=== PATIENT | female | born 1950 | race Caucasian/White ===

== ENCOUNTER → 2017-09-21 | Outpatient (CLI) | payer OTHER ==
[~2017-09-21] VITALS: Ht 170.2 cm; Wt 95.3 kg
[~2017-09-21] MED LIST: ALEVE220 MG PO; ALL DAY ALLERGY10 MG PO; AMITIZA8 MCG PO; APAP650 PO; ASPIR 8181 MG PO; DETROL LA4 MG PO; FLEXERIL PO; HYDROCODONE-AP1 EAC6 PO; HYDROXYCHLOROQ200 M1 PO; ISOSORBIDE MON120 MG PO; LEFLUNOMIDE 1010 MG PO; LIPITOR80 MG PO; NIFEDIPINE ER30 M1 PO; OMEGA-31000 M1 PO; PROTONIX40 M1 PO; TOPROL XL25 MG PO; UNICOMPLEX M TA1 TA1 PO; VITAMINC500 PO
--- NOTE | ~2017-09-21 | HPC ---
[facility] [place] [address] PAIN MANAGEMENT CONSULTATION Name: DANIELLE BROUSSARD Room #: REG IDALMIS GonsalesJoselyn#: [id number] Admission: 09/21/17 Attend Phys: Leighton Nieto DO Discharge: Date of : 50 Report #: [id number] THIS REPORT FOR: //name// CC: Darvin Llamas DATE OF SERVICE: 09/21/2017 REFERRING PHYSICIAN: Darvin Jeffries M.D. CHIEF COMPLAINT: Low back pain, right lower extremity pain and paresthesias. HISTORY OF PRESENT ILLNESS: As you know, the patient is a 66-year-old female who has had a short history of low back pain, right lower extremity pain with paresthesias. She indicates pain began August 2016, denies injury or trauma. She continues to participate in senior yoga and swimming exercise program, but despite these activities her pain remains fairly intense. She is placing pain today at around 3-4/10. She was seen by her orthopedic surgeon, Dr. Darvin Jeffries for suspected right hip pain. It was determined at that time the patient's symptoms were likely due to lumbar radiculopathy, and she was subsequently referred to our clinic. She indicates today pain is steady and constant, intermittent exacerbation symptoms occur at night. She states the pain is gnawing, sharp, tender, numbness and tingling. Places current pain score 3/10, daily average at 3-4/10, worst pain has been is 8/10. The patient states lying on her side and moving exacerbates symptoms. Pennsaid, hydrocodone, Blue-Emu oil tends to improve pain. She has been referred to our service to discuss interventional treatments to address lumbar radiculopathy. PAST MEDICAL HISTORY: 1. Coronary artery disease. 2. Esophageal reflux disease. 3. Bladder trouble. 4. Osteoarthritis. 5. Low back pain, lower extremity pain and paresthesias. PAST SURGICAL HISTORY: 1. Right knee arthroplasty. 2. Right shoulder surgery. 3. Left knee surgery. 4. Angioplasty with percutaneous stenting (CARDIAC). 5. Cataract surgery, bilateral. 6. Left nephrectomy. SOCIAL HISTORY: The patient denies tobacco, alcohol, IV or illicit drug use. 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 She is not receiving workmen's compensation or is she trying to obtain those disability benefits. She is unaccompanied today. She is not in litigation in regards to pain. REVIEW OF SYSTEMS: Positive for fatigue, weakness, frequent and recurrent headaches, wearing corrective eyewear, hearing loss or tinnitus, chronic sinus problems, rhinitis, heart trouble, chest pain with angina or palpitations, shortness of breath walking or lying flat, painful bowel movements or constipation, abdominal pain, frequent urination, nocturia, headaches, numbness and tingling sensations in the right lower extremity and excessive thirst and urination, heat and cold intolerance, slow to heal after cuts. All other review of systems negative per 12-point review of systems, and those listed in history of present illness. Pain impact score 26/70 indicating [id number] interference of daily activities secondary to pain. ALLERGIES: PENICILLIN AND SULFA. CURRENT MEDICATIONS: Naproxen sodium 220 mg 2 tabs p.o. at bedtime, multivitamin 1 tab per day, cetirizine 10 mg per day, omega-3 fish oil 1 tab per day, ascorbic acid 500 mg once a day, acetaminophen 650 mg 2 tabs 3 times a day, aspirin 81 mg per day, cyclobenzaprine 10 mg p.r.n., atorvastatin 80 mg per day, Detrol-LA 4 mg once a day, Amitiza 8 mcg per day, pantoprazole 40 mg per day, metoprolol 25 mg per day, Plaquenil 200 mg once a day, hydrocodone 5/325 one tab every 6 hours p.r.n. for pain, leflunomide 10 mg per day, isosorbide dinitrate 120 mg per day, nifedipine ER 30 mg per day. IMAGING: MRI lumbar spine shows multilevel degenerative changes, facet arthropathy, neural foraminal stenosis. No high grade central canal neural foraminal stenosis. There is a minimal grade 1 anterolisthesis of L4 on L5. PQRS: The patient has known osteoarthritis and rheumatoid arthritis. She has pain intensity of 3/10. She is not a fall risk, has not had a fall in the last 3 months. She is not on blood thinner. She is treated for hypertension. She has been on opioids greater than 6 weeks provided by another physician. Risk assessment tool is low for opioid addiction. Functional assessment shows 26/70, mild to moderate interference. PHYSICAL EXAMINATION: VITAL SIGNS: Blood pressure 127/67, pulse is 95, respiratory rate 16 and unlabored. The patient is 97% on room air. Height 5 feet 7 inches tall, weight 210 pounds, BMI calculated 32.9. GENERAL: Well-developed, well-nourished, well-hydrated exogenously obese 66-year-old female appearing her stated age, placing current pain score at [facility] [address] [place] [address] PAIN MANAGEMENT CONSULTATION Name: DANIELLE BROUSSARD Room #: REG Katelynn Dari.#: [id number] Admission: 09/21/17 Attend Phys: Leighton Nieto DO Discharge: Date of : 50 Report #: [id number] approximately 3-09/20. HEENT: Normocephalic, atraumatic. Pupils equal, round, reactive to light. Extraocular muscles are intact. Sclerae are nonicteric without injection. NEUROLOGIC: Cranial nerves 2-12 grossly intact. Speech is fluent. The patient deemed a good historian. LUNGS: Clear, no wheeze, rhonchi or rales. CARDIOVASCULAR: Regular. No appreciable gallop, no rub. ABDOMEN: Soft, mildly obese, normoactive bowel sounds. EXTREMITIES: Show no clubbing, no cyanosis, no edema. MUSCULOSKELETAL: Lower extremity strength equal and symmetrical 5/5. She is intact to light touch from L1 through S2 dermatomes. Seated straight leg raising negative. Supine straight leg raising mildly positive right. Marisol test negative. Modified Gaenslen's positive for axial low back pain. Ankle clonus negative. Babinski is negative. Deep tendon reflexes are symmetrical at patella and Achilles, diminished bilaterally. Lumbar provocation testing including extension, rotation, lateral flexion all slightly intensify right low back pain. ASSESSMENT: 1. Lumbar radiculopathy. 2. Spondylolisthesis of L4 on L5. 3. Chronic intractable pain. PLAN: 1. The patient has been referred to our service by her orthopedic surgeon to undergo an epidural injection under fluoroscopic guidance to address suspected lumbar radiculopathy. Physical exam today shows a mild lumbar radicular pattern involving the right lower extremity and appears to be along the right L5 nerve root. We have discussed with the patient the other options of treatment including medication management with neuropathic pain medications. We discussed physical therapy, stretching exercise, core strengthening. We discussed the requested epidural injection and surgical options. After reviewing the risks and benefits of all proposed treatment options, the patient chose to move forward with an epidural injection. The patient was advised risks and benefits of a lumbar epidural injection. These risks include but are not necessarily limited to bleeding, bruising, infection, worsening pain, no relief of pain, also risk of temporary or permanent muscle weakness, temporary or permanent nerve damage, possible paralysis and . The patient states understood and wished to proceed. 2. No medication changes were made at today's visit. The patient will continue current medical therapy as previously prescribed. 3. We will see the patient back in followup visit in approximately 3 weeks. At that time, we will review the efficacy of today's lumbar epidural injection and discuss if any next in the series of epidural injections would be necessary. 4. We wish to thank Dr. Darvin Jeffries for the referral of the patient to our clinic. We will keep you apprised of her response to treatment as we address [address] [address] PAIN MANAGEMENT CONSULTATION Name: DANIELLE BROUSSARD Room #: REG CLKatelynn Finn#: [id number] Admission: 09/21/17 Attend Phys: Leighton Nieto DO Discharge: Date of : 50 Report #: [id number] suspected lumbar radicular symptoms involving the right lower extremity upon the L5 nerve root. Again, we wish to thank you for the opportunity to see this patient in consultation. <ELECTRONICALLY SIGNED> By: Leighton Nieto DO 09/28/17 1207 [id number] Leighton Nieto DO /nt
--- NOTE | ~2017-09-21 | P ---
[facility] [place] [address] PROCEDURE REPORT Name: DANIELLE BROUSSARD [facility] #: [facility] [id number] Admission: 09/21/17 Attend Phys: Leighton Nieto DO Discharge: Date of : 50 Report #: [id number] THIS REPORT FOR: //name// CC: Darvin Llaams DATE OF SERVICE: 09/21/2017 PROCEDURE NOTE DESCRIPTION OF PROCEDURE: L5-S1 right paramedian epidural steroid injection under fluoroscopic guidance. This is the first procedure of the first series that the patient is undergoing. After obtaining written consent, the patient was taken back to the fluoroscopy suite, placed in a prone position with pillow under the abdomen to decrease lumbar lordosis. The skin overlying the lumbosacral area was then prepped and draped in aseptic fashion. The L5-S1 vertebral interspace was then identified by AP fluoroscopy. The skin and subcutaneous tissue overlying the target site of injection was anesthetized with 3 mL 1% lidocaine. A(n) 20-gauge 3-1/2 inch Tuohy needle was then advanced under fluoroscopic guidance towards the epidural space using a right paramedian approach. The epidural space was identified using loss of resistance to air technique. After negative aspiration for heme or cerebrospinal fluid, a total of 1 mL of Omnipaque was injected. A lumbar epidurogram was confirmed using both AP and lateral fluoroscopy. After negative aspiration for heme or cerebrospinal fluid, 5 mL of a solution containing 2 mL 40 mg/mL, 80 mg total triamcinolone, 3 mL lidocaine 1% was injected in increments. Contrast spread was noted posterior epidural space. The needle was then retracted approximately half way and needle tract flushed with 1 mL of 1% lidocaine. Needle was then removed. There were no apparent sensory or motor deficits in the lower extremity following the procedure. A sterile bandage was placed over the injection site. The heart rate, pulse, oximetry and blood pressure were continuously monitored after the procedure. There were no apparent complications. The patient tolerated the procedure well and was carefully escorted to the recovery room in stable condition. There were no apparent complications. After meeting discharge criteria, the patient was then discharged home. <ELECTRONICALLY SIGNED> By: Leighton Nieto DO 09/28/17 1207 [id number] Leighton Nieto DO /nt
[2017-09-21 08:07] VITALS: BP 127/67
== END | disposition home or self-care (01) ==
LOC: PAIN 06:46
DX: M54.16 Radiculopathy, lumbar region (principal); G89.29 Other chronic pain; M43.16 Spondylolisthesis, lumbar region; I25.10 Atherosclerotic heart disease of native coronary artery without angina pectoris; K21.9 Gastro-esophageal reflux disease without esophagitis; M19.90 Unspecified osteoarthritis, unspecified site; Z98.890 Other specified postprocedural states; Z98.41 Cataract extraction status, right eye; Z98.42 Cataract extraction status, left eye; Z90.5 Acquired absence of kidney; Z98.61 Coronary angioplasty status; Z88.0 Allergy status to penicillin; Z88.2 Allergy status to sulfonamides; Z79.899 Other long term (current) drug therapy; Z79.891 Long term (current) use of opiate analgesic; Z79.82 Long term (current) use of aspirin; Z87.19 Personal history of other diseases of the digestive system

== ENCOUNTER → 2017-10-19 | Outpatient (CLI) | payer OTHER ==
[~2017-10-19] VITALS: Ht 170.2 cm; Wt 94.9 kg
--- NOTE | ~2017-10-19 | HPC ---
[facility] [address] [place] [address] PAIN MANAGEMENT CONSULTATION Name: DANIELLE BROUSSARD Room #: REG IDALMIS SamanoJoselynDanial.#: [id number] Admission: 10/19/17 Attend Phys: Leighton Nieto DO Discharge: Date of : 50 Report #: [id number] THIS REPORT FOR: //name// CC: Darvin Llamas DATE OF SERVICE: 10/19/2017 REFERRING PHYSICIAN: Darvin Jeffries MD CHIEF COMPLAINT: Low back pain, right lower extremity pain with paresthesias. HISTORY OF PRESENT ILLNESS: As you know, the patient is a very pleasant 67-year-old female who returns today in followup visit, indicating improvement in pain in regards to her lumbar radicular symptoms. She is now placing pain score 3/10. She indicates pain is constant, sharp, tender, numbness and gnawing. Exacerbated with lying down, improves with medications and previous epidural injections. The patient received a reported 60% improvement in overall pain with the epidural injection provided at her last visit. She remains with some numbness and tingling and pain for which she wants to undergo the next in the series of epidural injections. She returns to undergo this procedure today. She does indicate that she is also experiencing right upper extremity numbness and tingling and is being evaluated further by vascular surgeon in regards to carotid problems on the left. There was some concern the patient may have suffered a stroke, though she is only experiencing numbness and tingling in the right arm and right leg. There are no symptoms involving any of the thoracic area, which would be inconsistent with stroke. It appears the patient is suffering from cervical radiculopathy and lumbar radiculopathy, the most likely sources. She returns today in followup visit, requesting epidural injection to build on success of previous intervention. She has denied any new injury or new trauma that may have led to symptom recurrence. ALLERGIES: PENICILLIN, SULFA. CURRENT MEDICATIONS: See extensive list in chart. SOCIAL HISTORY: The patient denies tobacco, alcohol, IV or illicit drug use. 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 She is not receiving workmen's compensation nor is she trying to obtain disability benefits. She is unaccompanied at today's visit. IMAGING: No new imaging available. PQRS: The patient has osteoarthritis and erosive arthritis, possibly even rheumatoid arthritis. She is being treated by Rheumatology. She has a pain [facility] [address] [place] [address] PAIN MANAGEMENT CONSULTATION Name: DANIELLE BROUSSARD Room #: REG CLI Huma#: [id number] Admission: 10/19/17 Attend Phys: Leighton Nieto DO Discharge: Date of : 50 Report #: [id number] intensity score today 08/20. She is not a fall risk, has not had a fall in last 3 months. She is not on blood thinners. She is treated for hypertension. She has been on opioids for greater than 6 weeks being provided by another physician. Risk assessment is low for opioid abuse. Functional assessment tool 26/70, mild to moderate. PHYSICAL EXAMINATION: VITAL SIGNS: Blood pressure 127/67, pulse 95, respiratory rate 16 and unlabored. The patient is 97% on room air. Height 5 feet 7 inches tall, weight 210 pounds, BMI calculated 32.9. GENERAL: Well-developed, well-nourished, well-hydrated exogenously obese 67-year-old female appearing her stated age. She is placing current pain score 3/10. HEENT: Normocephalic, atraumatic. Pupils equal, round, reactive to light. EXTREMITIES: Show no clubbing, no cyanosis, no edema. MUSCULOSKELETAL: Seated straight leg raising negative. Supine straight leg raising mildly positive right. Marisol's test negative. Modified Gaenslen's positive for axial low back pain. Ankle clonus negative. Babinski is negative. No focal neurologic deficits. ASSESSMENT: 1. Lumbar radiculopathy. 2. Spondylolisthesis of L4 on L5. 3. Peripheral neuropathy. 4. Chronic intractable pain. PLAN: 1. The patient returns today in followup visit, having noted about 60% improvement in overall pain with the initial epidural injection. Unfortunately, her symptoms have begun to return. She returns today per the request of her referring physician to undergo second in series of epidural injections. We also discussed today the possibility of initiating neuropathic pain medication as she is experiencing radicular symptoms in the right upper extremity and the right lower extremity, this could provide benefit for both. At this time, the patient does not wish to initiate any new medications as she is concerned, she is "taking too many." This could be discussed again with her PCP or her referring physician as possible treatment option. She has requested from us today an epidural injection. The patient was advised risks and benefits of a lumbar epidural injection. These risks include but are not necessarily limited to bleeding, bruising, infection, worsening pain, no relief of pain, also risk of temporary or permanent muscle weakness, temporary or permanent nerve damage, possible paralysis and . The patient states understood and wished to proceed. 2. No medication changes were made at today's visit. The patient will continue current medical therapy as previously prescribed. [address] [address] PAIN MANAGEMENT CONSULTATION Name: DANIELLE BROUSSARD Room #: REG [facility]#: [id number] Admission: 10/19/17 Attend Phys: Leighton Nieto DO Discharge: Date of : 50 Report #: [id number] 3. We will see the patient back in followup visit on an as-needed basis for the third in the series of epidural injections if necessary. PROCEDURE NOTE DESCRIPTION OF PROCEDURE: L5-S1 right paramedian epidural steroid injection under fluoroscopic guidance. This is the second procedure of the first series that the patient is undergoing. After obtaining written consent, the patient was taken back to the fluoroscopy suite, placed in a prone position with pillow under the abdomen to decrease lumbar lordosis. The skin overlying the lumbosacral area was then prepped and draped in aseptic fashion. The L5-S1 vertebral interspace was then identified by AP fluoroscopy. The skin and subcutaneous tissue overlying the target site of injection was anesthetized with 3 mL 1% lidocaine. A 20-gauge 3.5 inch Tuohy needle was then advanced under fluoroscopic guidance towards the epidural space using a right paramedian approach. The epidural space was identified using loss of resistance to air technique. After negative aspiration for heme or cerebrospinal fluid, a total of 1 mL of Omnipaque was injected. A lumbar epidurogram was confirmed using both AP and lateral fluoroscopy. After negative aspiration for heme or cerebrospinal fluid, 5 mL of a solution containing 2 mL 40 mg per mL, 80 mg total triamcinolone, 3 mL of lidocaine 1% was injected in increments. Contrast spread was noted posterior epidural space. The needle was then retracted approximately half way and needle tract flushed with 1 mL of 1% lidocaine. Needle was then removed. There were no apparent sensory or motor deficits in the lower extremity following the procedure. A sterile bandage was placed over the injection site. The heart rate, pulse, oximetry and blood pressure were continuously monitored after the procedure. There were no apparent complications. The patient tolerated the procedure well and was carefully escorted to the recovery room in stable condition. There were no apparent complications. After meeting discharge criteria, the patient was then discharged home. <ELECTRONICALLY SIGNED> By: Leighton Nieto DO 10/25/17 0811 [id number] Leighton Nieto DO /nt
[2017-10-19 08:07] VITALS: BP 135/74
== END | disposition home or self-care (01) ==
LOC: PAIN 07:30
DX: M54.16 Radiculopathy, lumbar region (principal); M43.16 Spondylolisthesis, lumbar region; G89.29 Other chronic pain; G62.9 Polyneuropathy, unspecified; I10 Essential (primary) hypertension; M19.90 Unspecified osteoarthritis, unspecified site; Z79.891 Long term (current) use of opiate analgesic; Z88.0 Allergy status to penicillin; Z88.2 Allergy status to sulfonamides; Z87.891 Personal history of nicotine dependence; Z79.82 Long term (current) use of aspirin; Z79.899 Other long term (current) drug therapy

== ENCOUNTER → 2018-06-20 | Outpatient (CLI) | payer OTHER ==
[~2018-06-20] VITALS: Ht 170.2 cm; Wt 96.1 kg
[~2018-06-20] MED LIST changes: +CYMBALTA30 MG PO; +LYRICA150 MG PO; +ROBAXIN 750 MG750 M1 PO
--- NOTE | ~2018-06-20 | HPC ---
[facility] [place] [address] PAIN MANAGEMENT CONSULTATION Name: BROUSSARDDANIELLE Mic Room #: REG IDALMIS Huma#: [id number] Admission: 06/20/18 Attend Phys: Leighton Nieto DO Discharge: Date of : 50 Report #: [id number] THIS REPORT FOR: //name// CC: Lucía Llamas DATE OF SERVICE: 06/20/2018 CHIEF COMPLAINT: Right thigh pain, posterolateral. HISTORY OF PRESENT ILLNESS: As you know, the patient is a 67-year-old female who underwent surgical decompression of the neck from C4 through T2 with laminectomy and fusion. She continues to experience a burning sensation in the right lateral thigh, believed to be due to residual radiculopathy. The patient has sought evaluation through her neurosurgery team. She continued to experience pain. She was advised no surgical option at this point though workup continues and she does have plans to undergo imaging of the cervical spine later this week. She has been referred back to our clinic to discuss options for treatment for the right lateral thigh. Pain appears to be related more to the iliotibial band than a specific dermatomal distribution. 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 She indicates today pain level around 6/10, describes the pain as burning and tight in its presentation. She is referred to our service to discuss options for treatment for this lateral thigh pain. ALLERGIES: PENICILLIN, SULFA. CURRENT MEDICATIONS: Duloxetine 30 mg once a day, Lyrica 150 mg 3 times a day, methocarbamol 750 mg twice a day, multivitamin 1 tab per day, cetirizine 10 mg per day, omega-3 fish oil 1 tab per day, ascorbic acid 500 mg 3 times a day, acetaminophen 650 mg 3 times a day, aspirin 81 mg per day, atorvastatin 80 mg per day, Amitiza 8 mcg per day, pantoprazole 40 mg per day, metoprolol XL 25 mg per day, hydroxychloroquine 200 mg once a day, leflunomide 10 mg once a day, isosorbide dinitrate 120 mg once a day, nifedipine ER 30 mg once a day. SOCIAL HISTORY: The patient denies tobacco, alcohol, IV or illicit drug use. She is unaccompanied today. IMAGING: There is no new imaging available. PQRS: The patient has known osteoarthritic changes of the cervical region. Has changes in the lumbar spine and bilateral hips. No rheumatoid arthritis based on her report. She indicates pain intensity 6/10. She is a fall risk, has had [address] [address] PAIN MANAGEMENT CONSULTATION Name: DANIELLE BROUSSARD Room #: REG CLI Huma#: [id number] Admission: 06/20/18 Attend Phys: Leighton Nieto DO Discharge: Date of : 50 Report #: [id number] a fall in the last 3 months and has been cautioned to utilize ambulatory devices for stabilization. She is not on any blood thinners. She is treated for hypertension. She is not on chronic opioids. She has a moderate to high risk for opioid addiction potentials. She has placed pain impact at 26/70, mild to moderate. PHYSICAL EXAMINATION: VITAL SIGNS: Blood pressure 108/57, pulse is 89, respiratory rate 16 and unlabored, the patient is 99% on room air. Height 5 feet 7 inches tall, weight 211.8 pounds, BMI calculated 33.2. GENERAL: Well-developed, well-nourished, well-hydrated 67-year-old female appearing stated age, placing current pain score at 6/10. HEENT: Normocephalic, atraumatic. Pupils equal, round, reactive to light. Extraocular muscles are intact. Sclerae nonicteric without injection. MUSCULOSKELETAL: The patient is in a soft collar, status post surgery with well-healed surgical scars in the cervical region. LUNGS: Clear, no wheeze, rhonchi or rales. CARDIOVASCULAR: Regular. No appreciable gallop, no rub. ABDOMEN: Soft, obese, normal active bowel sounds. EXTREMITIES: Show no clubbing, no cyanosis, no edema. MUSCULOSKELETAL: Upper extremity strength appears symmetrical 5/5, intact to light touch from C5-T1 dermatomes. Cervical provocation testing is met with increasing pain. There is a significant restriction of motion secondary to surgery. Lower extremity strength appears equal and symmetrical, no giveaway strength noted. Muscle tone is asymmetrical when comparing right lower extremity to left. There appears to be some atrophy of the quadriceps on the right when compared to left. There is a surgical scar directly overlying the patient's distribution of pain on the right lateral aspect of the thigh, status post squamous cell excision. Ankle clonus negative. Babinski is negative. There is palpatory tenderness over the iliotibial band. ASSESSMENT: 1. Right lower extremity pain. 2. Pain related to the right iliotibial band. 3. Peripheral neuropathy. 4. Chronic intractable pain. PLAN: 1. The patient returns today in followup visit indicating continued right leg pain. Apparently pain was present prior to her surgical intervention in the cervical region. This alleviated some of the symptoms and she has been able to add muscle back in the area, possibly due to myelopathy, though she continues to experience pain. We will be treating this as a neuropathic pain condition. There may be some component of myofascial symptoms and iliotibial band tension that needs to be evaluated through physical therapy and we have advised the patient to do so. The following changes were made in the patient's medication [facility] [address] [place] [address] PAIN MANAGEMENT CONSULTATION Name: DANIELLE BROUSSARD Room #: REG IDALMIS Finn#: [id number] Admission: 06/20/18 Attend Phys: Leighton Nieto DO Discharge: Date of : 50 Report #: [id number] management in hopes of improving baseline pain control. 2. Recommend increasing her Cymbalta to 60 mg p.o. at bedtime for the next 2 weeks with possibility escalating to 30 mg morning, 60 mg at night for 2 following weeks. If no improvement in symptoms, no side effects, then escalating to 60 mg b.i.d. This will be the top dose to provide improved analgesic benefit. The patient was provided prescription of Cymbalta 30 mg dose, #120 to titrate to the recommended level. 3. We would recommend the patient remain on Lyrica. She has noted good benefit with this medication. She is taking 150 mg 3 times a day without side effects and noted benefit. I would recommend she continue on this medication until which time we were able to control her symptoms more effectively: 4. The patient will follow up with Neurosurgery in regards to the findings of the cervical imaging and to discuss treatment options for her right lower extremity pain and paresthesias. 5. We will see the patient back in followup visit on an as needed basis. By: [id number] Leighton Nieto DO /nt
[2018-06-20 08:42] VITALS: BP 108/57
--- NOTE | 2018-06-20 08:56 | NUR ---
Pain Clinic Assessment: 1. History of Osteoarthritis: Not Applicable History of Rheumatoid Arthritis: Not Applicable 2. Height: 5 ft. 7 in. 170.2 cm. Weight: 211.8 lb. oz. 96.072 kg. Patient's BMI: 33.2 3. Vital Signs: BP: 108/57 Pulse: 89 Resp: 16 Temp: 02 Sat: 99 ECG Mon: 4. Pain Intensity: 6 5. Fall Risk: Dizziness: N Needs help standing or walking: Y Fallen in the last 3 months: Y Fall risk comments: 6. Patient on Blood Thinner: None 7. History of Hypertension: Y 8. Opioid Therapy greater than 6 weeks: N Opiate Contract Signed: 9. Risk Assessment Tool Provided: MODERATE RISK 12/17 10. Functional Assessment Tool: 11. Recreational Drug Use: Never Drug Type: Tobacco Use: Former Smoker Tobacco Type: Amount or Packs/day: How Many Years: Alcohol Use: Yes Frequency: Monthly Quant: 1-2 A MONTH
== END ==
LOC: PAIN 07:21
DX: M79.604 Pain in right leg (principal); G89.4 Chronic pain syndrome; G62.9 Polyneuropathy, unspecified; Z79.899 Other long term (current) drug therapy

== ENCOUNTER → 2018-08-16 | Outpatient (CLI) | payer OTHER ==
[~2018-08-16] VITALS: Ht 170.2 cm; Wt 96.6 kg
[~2018-08-16] MED LIST changes: +MEDROL DOSPAK21 TA1 PO; +NITROGLYCERIN0.4 MG SUBLING
[2018-08-16 10:07] VITALS: BP 129/54
--- NOTE | 2018-08-16 10:15 | NUR ---
Pain Clinic Assessment: 1. History of Osteoarthritis: Not Applicable History of Rheumatoid Arthritis: Not Applicable 2. Height: 5 ft. 7 in. 170.2 cm. Weight: 213.0 lb. oz. 96.616 kg. Patient's BMI: 33.4 3. Vital Signs: BP: 129/54 Pulse: 76 Resp: 18 Temp: 02 Sat: 97 ECG Mon: 4. Pain Intensity: 6 5. Fall Risk: Dizziness: N Needs help standing or walking: Y Fallen in the last 3 months: Y Fall risk comments: 6. Patient on Blood Thinner: None 7. History of Hypertension: Y 8. Opioid Therapy greater than 6 weeks: N Opiate Contract Signed: 9. Risk Assessment Tool Provided: MODERATE RISK 7 10. Functional Assessment Tool: 11. Recreational Drug Use: Never Drug Type: Tobacco Use: Former Smoker Tobacco Type: Amount or Packs/day: How Many Years: Alcohol Use: Yes Frequency: Special Occasions Quant: 1
--- NOTE | 2018-08-22 07:52 | HPC ---
[facility] [place] [address] PAIN MANAGEMENT CONSULTATION Name: DANIELLE BROUSSARD Room #: REG IDALMIS Joselyn.#: [id number] Admission: 08/16/18 ������������������ Attend Phys: Leighton Nieto DO Discharge: ������������������ Date of : 50 Report #: [id number] THIS REPORT FOR: //name// CC: Darvin Llamas MD DATE OF SERVICE: 08/16/2018 CHIEF COMPLAINT: Low back pain, right lower extremity pain and paresthesias. HISTORY OF PRESENT ILLNESS: As you know, the patient is a 67-year-old female who returns today in followup visit with ongoing concerns of low back pain and right lower extremity pain. The patient was seen in our clinic per the request of her neurosurgeon, Lucía Castro, 06/20/2018, where he evaluated the patient for right lower extremity pain related to possible excessively tight iliotibial band that was unalleviatable with physical therapy. She returns today in followup visit stating her pain now radiates down the leg all the way to the foot. This appears to be more radicular in origin. She indicates pain level today of around 6/10. She states pain is exacerbated with walking, standing and doing any activity. She denies new injury, new trauma or any changes since our last visit from a medication standpoint. ALLERGIES: PENICILLIN, SULFA. CURRENT MEDICATIONS: Duloxetine, Lyrica, methocarbamol, multivitamin, cetirizine, omega 3 fish oil, ascorbic acid, acetaminophen, aspirin, atorvastatin, Amitiza, pantoprazole, metoprolol XL, hydroxychloroquine, leflunomide, isosorbide dinitrate, nifedipine. SOCIAL HISTORY: The patient denies tobacco, alcohol, IV or illicit drug use. She is unaccompanied today. IMAGING: No new imaging available. PQRS: The patient has known osteoarthritic changes of the cervical spine and the lumbar spine as well as bilateral hips. No rheumatoid arthritis. Pain is rated at 6/10. She is a fall risk, has had a fall in the last 3 months. She is using an ambulatory device. She is not on blood thinners, but has history of hypertension. She is not on any opioids and is at a moderate to high risk for opioid addiction. She is placing pain impact score 26/70 indicating moderate interference of daily activities secondary to pain. PHYSICAL EXAMINATION: [address] [address] PAIN MANAGEMENT CONSULTATION Name: DANIELLE BROUSSARD Room #: REG CLKatelynn GonsalesJoselyn#: [id number] Admission: 08/16/18 ������������������ Attend Phys: Leighton Nieto DO Discharge: ������������������ Date of : 50 Report #: [id number] VITAL SIGNS: Blood pressure 129/54, pulse is 76, respiratory rate 18 and unlabored. The patient is 97% on room air. Height 5 feet 7 inches tall, weight 213 pounds, BMI calculated 33.4. GENERAL: Well-developed, well-nourished, well-hydrated exogenously obese 67-year-old female appearing stated age, placing current pain score at 6/10. HEENT: Normocephalic, atraumatic. Pupils equal, round, reactive to light. EXTREMITIES: Show no clubbing, no cyanosis, no edema. MUSCULOSKELETAL: Lower extremity strength appears symmetrical 5/5. No giveaway strength noted. Muscle bulk and tone is asymmetrical when comparing the right lower extremity to the left. Appears to be some atrophy of the quadriceps on the right when compared to left. Surgical scar directly over the patient's pain distribution on the right. Babinski is negative. ASSESSMENT: 1. Lumbar radiculopathy. 2. Right lower extremity pain. 3. Peripheral neuropathy. 4. Chronic intractable pain. PLAN: 1. The patient returns today in followup visit per the request of her neurosurgeon to undergo a lumbar epidural injection under fluoroscopic guidance to address suspected lumbar radiculopathy. The patient and I had a long discussion about this today. She is amenable to undergo the procedure. She has been advised of the risks and the benefits of a lumbar epidural injection. These risks include but are not necessarily limited to bleeding, bruising, infection, worsening pain, no relief of pain, also risk of temporary or permanent muscle weakness, temporary or permanent nerve damage, possible paralysis and . The patient states understood and wished to proceed. 2. No medication changes made at today's visit. The patient will continue current medical therapy as previously prescribed. 3. We will see the patient back in followup visit on an as needed basis for possible next in the series of epidural injections. PROCEDURE NOTE: DESCRIPTION OF PROCEDURE: L5-S1 interlaminar epidural steroid injection under fluoroscopic guidance. This is the first procedure of the second series that the patient is undergoing. After obtaining written consent, the patient was taken back to the fluoroscopy suite, placed in a prone position with pillow under the abdomen to decrease lumbar lordosis. The skin overlying the lumbosacral area was then prepped and draped in aseptic fashion. The L5-S1 vertebral interspace was then identified by AP fluoroscopy. The skin and subcutaneous tissue overlying the target site [address] [address] PAIN MANAGEMENT CONSULTATION Name: DANIELLE BROUSSARD Room #: REG [facility]#: [id number] Admission: 08/16/18 ������������������ Attend Phys: Leighton Nieto DO Discharge: ������������������ Date of : 50 Report #: [id number] of injection was anesthetized with 3 mL 1% lidocaine. A 20 gauge, 4-1/2 inch Tuohy needle was then advanced under fluoroscopic guidance towards the epidural space using a paramedian approach. The epidural space was identified using loss of resistance to air technique. After negative aspiration for heme or cerebrospinal fluid, a total of 1 mL of Omnipaque was injected. A lumbar epidurogram was confirmed using both AP and lateral fluoroscopy. After negative aspiration for heme or cerebrospinal fluid, 5 mL of a solution containing 2 mL 40 mg per mL, 80 mg total triamcinolone and 3 mL lidocaine 1% was injected in increments. Contrast spread was noted posterior epidural space. The needle was then retracted approximately half way and needle tract flushed with 1 mL of lidocaine. Needle was then removed. There were no apparent sensory or motor deficits in the lower extremity following the procedure. A sterile bandage was placed over the injection site. The heart rate, pulse, oximetry and blood pressure were continuously monitored after the procedure. There were no apparent complications. The patient tolerated the procedure well and was carefully escorted to the recovery room in stable condition. There were no apparent complications. After meeting discharge criteria, the patient was then discharged home. ��������������������������������������������� <ELECTRONICALLY SIGNED> ���������������������������������������� By: Leighton Nieto DO ��������������������������������������������� 08/22/18 [id number] Leighton Nieto DO /chun
== END | disposition home or self-care (01) ==
LOC: PAIN 06:59
DX: M54.16 Radiculopathy, lumbar region (principal); G89.29 Other chronic pain; G62.9 Polyneuropathy, unspecified; M79.604 Pain in right leg; I10 Essential (primary) hypertension; M19.90 Unspecified osteoarthritis, unspecified site; Z88.0 Allergy status to penicillin; Z88.2 Allergy status to sulfonamides; Z79.899 Other long term (current) drug therapy; Z87.891 Personal history of nicotine dependence; Z91.041 Radiographic dye allergy status; Z79.82 Long term (current) use of aspirin

== ENCOUNTER → 2018-11-15 | Outpatient (CLI) | payer OTHER ==
[~2018-11-15] VITALS: Ht 170.2 cm; Wt 99.9 kg
--- NOTE | ~2018-11-15 | HPC ---
[facility] [place] [address] PAIN MANAGEMENT CONSULTATION Name: DANIELLE BROUSSARD Room #: REG [facility]#: [id number] Admission: 11/15/18 ������������������ Attend Phys: Leighton Nieto DO Discharge: ������������������ Date of : 50 Report #: [id number] THIS REPORT FOR: //name// CC: DARVIN Llamas MD DATE OF SERVICE: 11/15/2018 REFERRING PHYSICIAN: Dr. Darvin Jeffries. CHIEF COMPLAINT: Low back pain, right lower extremity pain and paresthesias. HISTORY OF PRESENT ILLNESS: As you know, the patient is a 68-year-old female who returns today in followup visit with recurrent low back pain, right lower extremity pain with paresthesias. She is now experiencing some left lower extremity pain as well. She is now placing her pain score at 8/10. She states her pain is burning and aching in sensation and exacerbated with standing and walking for long periods of time. It improves with lying down, repositioning and previous epidural injection. The patient reports previous epidural injection gave 100% improvement in overall pain, lasting for nearly 3 months. She returns today to undergo next in the series of epidural injections. She denies new injury or trauma that may have led to condition reoccurrence. ALLERGIES: PENICILLIN AND SULFA. CURRENT MEDICATIONS: Lyrica, duloxetine, nitroglycerin, cetirizine, Henry-3 fish oil, ascorbic acid, acetaminophen, aspirin, atorvastatin, Amitiza, pantoprazole, metoprolol, hydroxychloroquine, hydrocodone, leflunomide, isosorbide dinitrate and nifedipine. SOCIAL HISTORY: The patient denies tobacco, alcohol, IV or illicit drug use. She is unaccompanied today. IMAGING: No new imaging available. PQRS: The patient has known arthritic changes of the cervical spine, lumbar spine and bilateral hips. No rheumatoid arthritis. She is a fall risk, but has not had a fall in the last 3 months. She is not on blood thinners. She is treated for hypertension. She is not on chronic opioids, but has a [id number] opioid risk potential. She is placing a pain impact at 26/70, moderate interference of daily activities secondary to pain. PHYSICAL EXAMINATION: [address] [address] PAIN MANAGEMENT CONSULTATION Name: BROUSSARDDANIELLE E Room #: REG [facility].#: [id number] Admission: 11/15/18 ������������������ Attend Phys: Leighton Nieto DO Discharge: ������������������ Date of : 50 Report #: [id number] VITAL SIGNS: Blood pressure 118/69, pulse 83 and respiratory rate 16 and unlabored. The patient is 96% on room air. Height 5 feet 7 inches tall, weight 220.2 pounds and BMI calculated 34.5. GENERAL: Well-developed, well-nourished, well-hydrated exogenously obese 68-year-old female. She appears stated age, placing current pain score at 8/10. HEENT: Normocephalic, atraumatic. Pupils equal, round and reactive to light. Extraocular muscles are intact. Speech fluent. The patient deemed a good historian. EXTREMITIES: Show no clubbing, no cyanosis and no edema. MUSCULOSKELETAL: Lower extremity strength equal and symmetrical, 5/5. Muscle bulk and tone equal and symmetrical when comparing to lower extremities. Surgical scar directly over the patient's pain distribution on the right. Babinski is negative. Ankle clonus negative. Seated straight leg raising negative. Supine straight leg raising positive. ASSESSMENT: 1. Symptomatic lumbar radiculopathy. 2. Displacement of lumbar intervertebral disk with radiculopathy. 3. Lumbosacral spondylosis with radiculopathy. 4. Neural foraminal stenosis of the lumbar spine. 5. Chronic intractable pain. PLAN: 1. The patient returns today in followup visit, requesting to undergo next in the series of epidural injections under fluoroscopic guidance. She has done very well with previous epidural injection, reporting 100% improvement in overall pain, with her last injection lasting for nearly 3 months. She returns requesting this injection today. I advised the patient of the risks and benefits. She states she understood and wished to proceed. 2. No medication changes made at today's visit. The patient will continue current medical therapy as previously prescribed. 3. We will see the patient back in followup visit on an as-needed basis for possible next in the series of lumbar epidural injections. PROCEDURE: L5-S1 interlaminar epidural steroid injection under fluoroscopic guidance. This is the second procedure of the second series that the patient is undergoing. After obtaining written consent, the patient was taken back to the fluoroscopy suite, placed in a prone position with pillow under the abdomen to decrease lumbar lordosis. The skin overlying the lumbosacral area was then prepped and draped in aseptic fashion. The L5-S1 vertebral interspace was then identified by AP fluoroscopy. The skin and subcutaneous tissue overlying the target site of injection was anesthetized with 3 mL 1% lidocaine. [address] [address] PAIN MANAGEMENT CONSULTATION Name: DANIELLE BROUSSARD Room #: REG IDALMIS Finn#: [id number] Admission: 11/15/18 ������������������ Attend Phys: Leighton Nieto DO Discharge: ������������������ Date of : 50 Report #: [id number] A 20-guage 4.5-inch Tuohy needle was then advanced under fluoroscopic guidance towards the epidural space using a right paramedian approach. The epidural space was identified using loss of resistance to air technique. After negative aspiration for heme or cerebrospinal fluid, a total of 1 mL of Omnipaque was injected. A lumbar epidurogram was confirmed using both AP and lateral fluoroscopy. After negative aspiration for heme or cerebrospinal fluid, 5 mL of a solution containing 2 mL 40 mg per mL 80 mg total triamcinolone and 3 mL of lidocaine 1% was injected in increments. Contrast spread was noted posterior epidural space. The needle was then retracted approximately half way and needle tract flushed with 1 mL of lidocaine. Needle was then removed. There were no apparent sensory or motor deficits in the lower extremity following the procedure. A sterile bandage was placed over the injection site. The heart rate, pulse, oximetry and blood pressure were continuously monitored after the procedure. There were no apparent complications. The patient tolerated the procedure well and was carefully escorted to the recovery room in stable condition. There were no apparent complications. After meeting discharge criteria, the patient was then discharged home. ��������������������������������������������� ���������������������������������������� By: ��������������������������������������������� [id number] Leighton Nieto DO /nt
[2018-11-15 11:24] VITALS: BP 118/69
--- NOTE | 2018-11-15 11:37 | NUR ---
Pain Clinic Assessment: 1. History of Osteoarthritis: Not Applicable History of Rheumatoid Arthritis: Not Applicable 2. Height: 5 ft. 7 in. 170.2 cm. Weight: 220.2 lb. oz. 99.882 kg. Patient's BMI: 34.5 3. Vital Signs: BP: 118/69 Pulse: 83 Resp: 16 Temp: 02 Sat: 96 ECG Mon: 4. Pain Intensity: 8 5. Fall Risk: Dizziness: N Needs help standing or walking: Y Fallen in the last 3 months: N Fall risk comments: 6. Patient on Blood Thinner: None 7. History of Hypertension: Y 8. Opioid Therapy greater than 6 weeks: N Opiate Contract Signed: 9. Risk Assessment Tool Provided: MODERATE RISK 7 10. Functional Assessment Tool: 11. Recreational Drug Use: Never Drug Type: Tobacco Use: Former Smoker Tobacco Type: Amount or Packs/day: How Many Years: Alcohol Use: Yes Frequency: Special Occasions Quant: 1
== END | disposition home or self-care (01) ==
LOC: PAIN 06:59
DX: M51.16 Intervertebral disc disorders with radiculopathy, lumbar region (principal); M47.27 Other spondylosis with radiculopathy, lumbosacral region; M99.73 Connective tissue and disc stenosis of intervertebral foramina of lumbar region; G89.29 Other chronic pain; I10 Essential (primary) hypertension; E66.9 Obesity, unspecified; Z68.34 Body mass index [BMI] 34.0-34.9, adult; Z88.0 Allergy status to penicillin; Z88.2 Allergy status to sulfonamides; Z79.899 Other long term (current) drug therapy; Z79.82 Long term (current) use of aspirin

== ENCOUNTER → 2019-04-10 | Outpatient (CLI) | payer OTHER ==
[~2019-04-10] VITALS: Ht 170.2 cm; Wt 98.7 kg
[2019-04-10 09:58] VITALS: BP 131/70
--- NOTE | 2019-04-10 10:15 | NUR ---
Pain Clinic Assessment: 1. History of Osteoarthritis: Not Applicable History of Rheumatoid Arthritis: Not Applicable 2. Height: 5 ft. 7 in. 170.2 cm. Weight: 217.6 lb. oz. 98.703 kg. Patient's BMI: 34.1 3. Vital Signs: BP: 131/70 Pulse: 89 Resp: 16 Temp: 02 Sat: 98 ECG Mon: 4. Pain Intensity: 5 5. Fall Risk: Dizziness: N Needs help standing or walking: Y Fallen in the last 3 months: Y Fall risk comments: 6. Patient on Blood Thinner: None 7. History of Hypertension: Y 8. Opioid Therapy greater than 6 weeks: N Opiate Contract Signed: 9. Risk Assessment Tool Provided: MODERATE RISK 7 10. Functional Assessment Tool: 11. Recreational Drug Use: Current within past 3 mos Drug Type: [place] Tobacco Use: Former Smoker Tobacco Type: Amount or Packs/day: How Many Years: Alcohol Use: Yes Frequency: Monthly Quant: 1
--- NOTE | 2019-04-17 12:48 | HPC ---
[facility] [address] [place] [address] PAIN MANAGEMENT CONSULTATION Name: BROUSSARD,DANIELLE E Room #: REG IDALMIS Joselyn.#: [id number] Admission: 04/10/19 Attend Phys: Leighton Nieto DO Discharge: Date of : 50 Report #: [id number] THIS REPORT FOR: //name// CC: Lucía Llamas DATE OF SERVICE: 04/10/2019 CHIEF COMPLAINT: Low back pain, right lower extremity pain with paresthesias. HISTORY OF PRESENT ILLNESS: As you know, the patient is a 68-year-old female who returns today in followup visit requesting to undergo lumbar epidural injection under fluoroscopic guidance. She reports previous epidural injection providing 80% improvement in overall pain lasting for nearly 10 weeks. She reports pain now begins in the low back, left buttock and radiates down the left leg. It is chronic in nature. She describes the pain as burning, sharp, aching, shooting. Exacerbated with sitting and lying down, improves with standing and epidural injection. She returns today in followup visit to undergo next in the series of lumbar epidural injections to address recurrent pain without inciting injury or trauma. ALLERGIES: PENICILLIN, SULFA. CURRENT MEDICATIONS: Lyrica, nitroglycerin, duloxetine, cetirizine, omega-3 fish oil, ascorbic acid, acetaminophen, aspirin, atorvastatin, Amitiza, pantoprazole, metoprolol, hydroxychloroquine, hydrocodone, rufinamide, isosorbide dinitrate and nifedipine. SOCIAL HISTORY: The patient denies tobacco, alcohol, IV or illicit drug use. She is unaccompanied today. IMAGING: No new imaging available. PQRS: The patient has arthritic changes of the cervical spine, lumbar spine, bilateral hips, no rheumatoid arthritis. She is a fall risk and has had a fall in last 3 months. She does not use any ambulatory devices, but has been cautioned to do so. She is not on blood thinners. She is treated for hypertension. She is not on chronic opioids, but does have a mceekdca-mi-zqcxgy opioid addiction potential. Pain impact score 26/70 indicating moderate interference of daily activities secondary to pain. PHYSICAL EXAMINATION: VITAL SIGNS: Blood pressure 131/70, pulse 89, respiratory rate 16 and unlabored. The patient is 98% on room air. Height 5 feet 7 inches tall, weight 217.6 pounds, BMI calculated 34.1. [address] [address] PAIN MANAGEMENT CONSULTATION Name: DANIELLE BROUSSARD Room #: REG CLI [facility]#: [id number] Admission: 04/10/19 Attend Phys: Leighton Nieto DO Discharge: Date of : 50 Report #: [id number] GENERAL: Well-developed, well-nourished, well-hydrated, exogenously obese 68-year-old female appearing stated age, pain is rated today around 5/10. HEENT: Normocephalic, atraumatic. Pupils equal, round, reactive to light. Extraocular muscles are intact. EXTREMITIES: Show no clubbing, no cyanosis, and no edema. MUSCULOSKELETAL: Muscle bulk and tone is symmetrical in comparing left lower extremity over right. Muscle strength is symmetrical 5/5. Seated straight leg raising negative. Supine straight leg raising is positive on the right. ASSESSMENT: 1. Symptomatic lumbar radiculopathy. 2. Displacement of a lumbar intervertebral disk with radiculopathy. 3. Lumbosacral spondylosis with radiculopathy. 4. Neural foraminal stenosis of the lumbar spine. 5. Chronic intractable pain. PLAN: 1. The patient returns today in followup visit to undergo next in the series of lumbar epidural injections under fluoroscopic guidance. She reports good efficacy with previous epidural injection, gaining 80% improvement in overall pain or lasting for greater than 10 weeks. She returns requesting next in a series of epidural injections to address this ongoing pain. This is the third in the series of epidural injections. She was advised the next injections that will be available would be in 06/2019. She states she understood and wished to proceed. 2. No medication changes made at today's visit. The patient will continue current medical therapy. 3. We will see the patient back in followup visit in June for possible next in the series of epidural injections. PROCEDURE NOTE: DESCRIPTION OF PROCEDURE: L5-S1 parasagittal epidural injection under fluoroscopic guidance. This is the third procedure of the first series that the patient is undergoing. After obtaining written consent, the patient was taken back to the fluoroscopy suite, placed in a prone position with pillow under the abdomen to decrease lumbar lordosis. The skin overlying the lumbosacral area was then prepped and draped in aseptic fashion. The L5-S1 vertebral interspace was then identified by AP fluoroscopy. The skin and subcutaneous tissue overlying the target site of injection was anesthetized with 3 mL 1% lidocaine. A 20-gauge 4-1/2-inch Tuohy needle was then advanced under fluoroscopic guidance towards the epidural space using a parasagittal approach. The epidural space was identified using loss of resistance to air technique. After negative [address] [address] PAIN MANAGEMENT CONSULTATION Name: DANIELLE BROUSSARD Room #: REG CLI Dru#: [id number] Admission: 04/10/19 Attend Phys: Leighton Nieto DO Discharge: Date of : 50 Report #: [id number] aspiration for heme or cerebrospinal fluid, a total of 1 mL of Omnipaque was injected. A lumbar epidurogram was confirmed using both AP and lateral fluoroscopy. After negative aspiration for heme or cerebrospinal fluid, 5 mL of a solution containing 2 mL 40 mg per mL, 80 mg total triamcinolone along with 3 mL lidocaine 1% was injected in increments. Contrast spread was noted posterior epidural space. The needle was then retracted approximately half way and needle tract flushed with 1 mL of lidocaine. Needle was then removed. There were no apparent sensory or motor deficits in the lower extremity following the procedure. A sterile bandage was placed over the injection site. The heart rate, pulse, oximetry and blood pressure were continuously monitored after the procedure. There were no apparent complications. The patient tolerated the procedure well and was carefully escorted to the recovery room in stable condition. There were no apparent complications. After meeting discharge criteria, the patient was then discharged home. <ELECTRONICALLY SIGNED> By: Leighton Nieto DO 04/17/19 1248 [id number] Leighton Nieto DO /nt
== END | disposition home or self-care (01) ==
LOC: PAIN 06:52
DX: M54.5 Low back pain (principal); M51.16 Intervertebral disc disorders with radiculopathy, lumbar region; M47.27 Other spondylosis with radiculopathy, lumbosacral region; M48.061 Spinal stenosis, lumbar region without neurogenic claudication; G89.29 Other chronic pain; Z98.890 Other specified postprocedural states; Z88.0 Allergy status to penicillin; Z88.2 Allergy status to sulfonamides; Z79.82 Long term (current) use of aspirin; Z79.899 Other long term (current) drug therapy; Z79.891 Long term (current) use of opiate analgesic; Z91.041 Radiographic dye allergy status

== ENCOUNTER → 2019-07-31 | Outpatient (CLI) | payer OTHER ==
[~2019-07-31] VITALS: Ht 170.2 cm; Wt 101.2 kg
[2019-07-31 11:19] VITALS: BP 119/59
--- NOTE | 2019-07-31 11:25 | NUR ---
Pain Clinic Assessment: 1. History of Osteoarthritis: SHOULDER-RT KNEES History of Rheumatoid Arthritis: YES 2. Height: 5 ft. 7 in. 170.2 cm. Weight: 223.0 lb. oz. 101.152 kg. Patient's BMI: 34.9 3. Vital Signs: BP: 119/59 Pulse: 77 Resp: 14 Temp: 02 Sat: 95 ECG Mon: 4. Pain Intensity: 4 TODAY 8 YESTERDAY 5. Fall Risk: Dizziness: N Needs help standing or walking: N Fallen in the last 3 months: Y Fall risk comments: FELL JUN 6. DID NOT SEEK MEDICAL TREATMENT. 6. Patient on Blood Thinner: None 7. History of Hypertension: Y 8. Opioid Therapy greater than 6 weeks: N Opiate Contract Signed: 9. Risk Assessment Tool Provided: MODERATE RISK 7 10. Functional Assessment Tool: 11. Recreational Drug Use: Past greater than 3 mos Drug Type: CBD/THC COMBO Tobacco Use: Former Smoker Tobacco Type: Amount or Packs/day: How Many Years: Alcohol Use: Yes Frequency: Monthly Quant:
--- NOTE | 2019-08-07 07:45 | HPC ---
[facility] [place] [address] PAIN MANAGEMENT CONSULTATION Name: DANIELLE BROUSSARD Room #: REG IDALMIS Dari.#: [id number] Admission: 07/31/19 Attend Phys: Leighton Nieto DO Discharge: Date of : 50 Report #: [id number] THIS REPORT FOR: cc: Nando Llamas MD, Steven E. MD Johnson, James E. DO ~ THIS REPORT FOR: //name// DATE OF SERVICE: 07/31/2019 CHIEF COMPLAINT: Low back pain, bilateral lower extremity pain with paresthesias. HISTORY OF PRESENT ILLNESS: As you know, the patient is a pleasant 68-year-old female who has returned today in followup visit to undergo lumbar epidural injection under fluoroscopic guidance. The patient just has been released from her orthopedic surgeon from her right shoulder surgery. She is going to begin physical therapy on that shoulder, starting next week. She has returned today in followup visit due to recurrent low back pain, lower extremity pain and paresthesias. She is placing current pain score 4/10 today, but as high as 8/10 yesterday. She denies injury or trauma that may have led to symptom development. She did sustain a fall 06/18/2019 but did not seek evaluation and believes this may have exacerbated symptoms. She returns for next in a series of lumbar epidural injections. ALLERGIES: PENICILLIN, SULFA. CURRENT MEDICATIONS: Lyrica, nitroglycerin, duloxetine, cetirizine, omega-3 fish oil, ascorbic acid, acetaminophen, aspirin, atorvastatin, Amitiza, pantoprazole, metoprolol, hydroxychloroquine, hydrocodone, rufinamide, isosorbide dinitrate and nifedipine. SOCIAL HISTORY: The patient denies tobacco, alcohol, IV or illicit drug use. She is unaccompanied today. IMAGING: No new imaging available. PQRS: The patient has known arthritic changes of the cervical spine, lumbar spine, bilateral hips, no rheumatoid arthritis. She is a fall risk and had a fall on 06/18/2019 but did not seek evaluation. She states that she tripped over an object. She does not use any ambulatory devices. She is not on blood thinners, but is treated for hypertension. She is not on chronic opioids and has a moderate risk to high risk of opioid addiction. Pain impact score 26/70 indicating moderate interference of daily activities secondary to pain. [address] [address] PAIN MANAGEMENT CONSULTATION Name: DANIELLE BROUSSARD Room #: REG CLI [facility]#: [id number] Admission: 07/31/19 Attend Phys: Leighton Nieto DO Discharge: Date of : 50 Report #: [id number] PHYSICAL EXAMINATION: VITAL SIGNS: Blood pressure 119/59, pulse is 77, respiratory rate 14 and unlabored. The patient is 95% on room air. Height 5 feet 7 inches tall, weight 223 pounds, BMI calculated 34.7. GENERAL: Well-developed, well-nourished, well-hydrated exogenously obese 68-year-old female appearing stated age, pain is rated today 4/10. HEENT: Normocephalic, atraumatic. Pupils equal, round, reactive to light. EXTREMITIES: Show no clubbing, no cyanosis, and no edema. MUSCULOSKELETAL: Lower extremity strength appears symmetrical 5/5, intact to light touch from L1 through S2 dermatomes. Seated straight leg raising is negative. Supine straight leg raising is positive on the right. Marisol's test is negative. Gait is mildly antalgic favoring right lower extremity over left. ASSESSMENT: 1. Symptomatic lumbar radiculopathy. 2. Displacement of lumbar intervertebral disk with radiculopathy. 3. Lumbosacral spondylosis with radiculopathy. 4. Neuroforaminal stenosis of the lumbar spine. 5. Chronic intractable pain. PLAN: 1. The patient returns today in followup visit to undergo lumbar epidural injection under fluoroscopic guidance. She notes good efficacy with previous epidural injections. She returns today to undergo next in the series. She has been advised risks and benefits of procedure, states understood and wished to proceed. 2. No medication changes made at today's visit. The patient will continue current medical therapy as prior prescribed. 3. We will see the patient back in followup visit on an as needed basis for possible next in the series of lumbar epidural injections. We are hopeful the patient will see good and prolonged benefit with today's procedure. PROCEDURE NOTE DESCRIPTION OF PROCEDURE: L5-S1 interlaminar epidural steroid injection under fluoroscopic guidance. This is the first procedure of the second series that the patient is undergoing. After obtaining written consent, the patient was taken back to the fluoroscopy suite, placed in a prone position with pillow under the abdomen to decrease lumbar lordosis. The skin overlying the lumbosacral area was then prepped and draped in aseptic fashion. The L5-S1 vertebral interspace was then identified by AP fluoroscopy. The skin and subcutaneous tissue overlying the target site of injection was anesthetized with 3 mL 1% lidocaine. [address] [address] PAIN MANAGEMENT CONSULTATION Name: DANIELLE BROUSSARD Room #: REG IDALMIS Finn#: [id number] Admission: 07/31/19 Attend Phys: Leighton Nieto DO Discharge: Date of : 50 Report #: [id number] A 20-guage 3.5-inch Tuohy needle was then advanced under fluoroscopic guidance towards the epidural space using a right paramedian approach. The epidural space was identified using loss of resistance to air technique. After negative aspiration for heme or cerebrospinal fluid, a total of 1 mL of Omnipaque was injected. A lumbar epidurogram was confirmed using both AP and lateral fluoroscopy. After negative aspiration for heme or cerebrospinal fluid, 5 mL of a solution containing 2 mL 40 mg per mL 80 mg total triamcinolone along with 3 mL of lidocaine 1% was injected in increments. Contrast spread was noted posterior epidural space. The needle was then retracted approximately half way and needle tract flushed with 1 mL of 1% lidocaine. Needle was then removed. There were no apparent sensory or motor deficits in the lower extremity following the procedure. A sterile bandage was placed over the injection site. The heart rate, pulse, oximetry and blood pressure were continuously monitored after the procedure. There were no apparent complications. The patient tolerated the procedure well and was carefully escorted to the recovery room in stable condition. There were no apparent complications. After meeting discharge criteria, the patient was then discharged home. <ELECTRONICALLY SIGNED> By: Leighton Nieto DO 08/07/19 0745 [id number] Leighton Nieto, DO /nt
== END | disposition home or self-care (01) ==
LOC: PAIN 06:52
DX: M51.16 Intervertebral disc disorders with radiculopathy, lumbar region (principal); M47.27 Other spondylosis with radiculopathy, lumbosacral region; M48.061 Spinal stenosis, lumbar region without neurogenic claudication; G89.29 Other chronic pain; Z88.0 Allergy status to penicillin; Z98.890 Other specified postprocedural states; Z79.899 Other long term (current) drug therapy; Z88.2 Allergy status to sulfonamides; Z91.041 Radiographic dye allergy status

== ENCOUNTER → 2019-11-21 | Outpatient (CLI) | payer OTHER ==
[~2019-11-21] VITALS: Ht 170.2 cm; Wt 105.5 kg
[2019-11-21 12:41] VITALS: BP 101/60
--- NOTE | 2019-11-21 12:55 | NUR ---
Pain Clinic Assessment: 1. History of Osteoarthritis: SHOULDER-RT KNEES History of Rheumatoid Arthritis: YES 2. Height: 5 ft. 7 in. 170.2 cm. Weight: 232.6 lb. oz. 105.507 kg. Patient's BMI: 36.4 3. Vital Signs: BP: 101/60 Pulse: 89 Resp: 20 Temp: 02 Sat: 96 ECG Mon: 4. Pain Intensity: 4 5. Fall Risk: Dizziness: N Needs help standing or walking: Y Fallen in the last 3 months: N Fall risk comments: FELL JUN 6. DID NOT SEEK MEDICAL TREATMENT. 6. Patient on Blood Thinner: None 7. History of Hypertension: Y 8. Opioid Therapy greater than 6 weeks: N Opiate Contract Signed: 9. Risk Assessment Tool Provided: MODERATE RISK 7 10. Functional Assessment Tool: 11. Recreational Drug Use: Current within past 3 mos Drug Type: MARIJUANA Tobacco Use: Former Smoker Tobacco Type: Cigarettes Amount or Packs/day: 1 How Many Years: 35 Alcohol Use: Yes Frequency: Monthly Quant: DRINK
--- NOTE | 2019-12-04 09:14 | HPC ---
[facility] [place] [address] PAIN MANAGEMENT CONSULTATION Name: DANIELLE BROUSSARD Room #: REG IDALMIS Gonsales.#: [id number] Admission: 11/21/19 Attend Phys: Leighton Nieto DO Discharge: Date of : 50 Report #: [id number] THIS REPORT FOR: cc: Nando Llamas MD, Steven E. MD Johnson, James E. DO ~ DATE OF SERVICE: 11/21/2019 REFERRING PHYSICIAN: CHIEF COMPLAINT: Low back pain, bilateral lower extremity pain with paresthesia, left greater than right. HISTORY OF PRESENT ILLNESS: As you know, the patient is a pleasant 69-year-old female who returns today in followup visit to undergo next in the series of lumbar epidural injections under fluoroscopic guidance. The previous epidural injection, reportedly gave 80% improvement in overall pain lasting for nearly 2 months. She is now complaining mainly of pain in the low back and left lower extremity with intermittent right lower extremity symptoms. She is placing pain today at a level of 4/10. She denies new injury or trauma that may have led to symptom development. She returns today in followup visit for the next in the series of epidural injections. ALLERGIES: PENICILLIN, SULFA. CURRENT MEDICATIONS: See chart. SOCIAL HISTORY: The patient denies tobacco, alcohol, IV or illicit drug use. She is unaccompanied today. IMAGING: No new imaging available. PQRS: The patient has known arthritic changes of the cervical spine, lumbar spine, bilateral hips. No rheumatoid arthritis. She is placing pain intensity 4/10. She is a fall risk and did have a fall 06/18/2019, but did not seek medical treatment. She states she fell at home, tripping over an object. She has not had another incident. She is not on blood thinners, but is treated for hypertension. She is not on chronic opioids and does have a moderate risk of opioid addiction, potential based on our assessment tool. Pain impact score 26/70, moderate interference of daily activities secondary to pain. PHYSICAL EXAMINATION: VITAL SIGNS: Blood pressure 101/60, pulse 89, respiratory rate 20 and unlabored. The patient is 96% on room air. Height 5 feet 7 inches tall, weight 232.6 pounds and BMI calculated 36.4. GENERAL: Well-developed, well-nourished, well-hydrated exogenously obese 69-year-old female appearing stated age, pain is rated today 4/10. [address] [address] PAIN MANAGEMENT CONSULTATION Name: DANIELLE BROUSSARD Room #: REG CLI [facility]#: [id number] Admission: 11/21/19 Attend Phys: Leighton Nieto DO Discharge: Date of : 50 Report #: [id number] HEENT: Normocephalic, atraumatic. Pupils are equal and round. EXTREMITIES: Show no clubbing, no cyanosis, no edema. MUSCULOSKELETAL: Lower extremity strength remains symmetrical today, 5/5. Seated straight leg raising negative. Supine straight leg raising positive on the left. Marisol's test is negative. Modified Gaenslen's positive for axial low back pain. Ankle clonus negative. Babinski is negative. Muscle bulk and tone is symmetrical in comparing left lower extremity to right. ASSESSMENT: 1. Symptomatic lumbar radiculopathy. 2. Displacement of lumbar intervertebral disk with radiculopathy. 3. Lumbosacral spondylosis with radiculopathy. 4. Neural foraminal stenosis of lumbar spine. 5. Chronic intractable pain. PLAN: 1. The patient returns today in followup visit requesting to undergo lumbar epidural injection under fluoroscopic guidance to address recurrent lumbar radicular symptoms. The patient is placing pain score 4/10. She has denied any new injury or trauma that may have led to symptom reoccurrence. She did sustain a fall in June, but this did not exacerbate her symptoms. She reports 80% improvement in overall pain with the epidural injection provided at our last visit, lasting for almost 2 full months with a slow and progressive return of symptoms. She returns today for next in the series of epidural injections. 2. The patient has been advised risks and benefits of a lumbar epidural injection. These risks include but are not necessarily limited to bleeding, bruising, infection, worsening pain, no relief of pain, also risk of temporary or permanent muscle weakness, temporary or permanent nerve damage, possible paralysis and . The patient states understood and wished to proceed. 3. No medication changes made at today's visit. The patient will continue current medical therapy as previously prescribed. 4. We will see the patient back in followup visit on an as needed basis for possible next in the series of lumbar epidural injections. PROCEDURE NOTE DESCRIPTION OF PROCEDURE: L5-S1 left paramedian epidural steroid injection under fluoroscopic guidance. This is the second procedure of the second series that the patient is undergoing. After obtaining written consent, the patient was taken back to the fluoroscopy suite, placed in a prone position with pillow under the abdomen to decrease lumbar lordosis. The skin overlying the lumbosacral area was then prepped and draped in aseptic fashion. The L5-S1 vertebral interspace was then identified [address] [address] PAIN MANAGEMENT CONSULTATION Name: DANIELLE BROUSSARD Room #: REG IDALMIS Finn#: [id number] Admission: 11/21/19 Attend Phys: Leighton Nieto DO Discharge: Date of : 50 Report #: [id number] by AP fluoroscopy. The skin and subcutaneous tissue overlying the target site of injection was anesthetized with 3 mL 1% lidocaine. A 20-gauge 3-1/2 inch Tuohy needle was then advanced under fluoroscopic guidance towards the epidural space using a left paramedian approach. The epidural space was identified using loss of resistance to air technique. After negative aspiration for heme or cerebrospinal fluid, a total of 1 mL of Omnipaque was injected. A lumbar epidurogram was confirmed using both AP and lateral fluoroscopy. After negative aspiration for heme or cerebrospinal fluid, 5 mL of solution containing 2 mL 40 mg per mL, 80 mg total triamcinolone along with 3 mL of lidocaine 1% was injected in increments. Contrast spread was noted posterior epidural space. The needle was then retracted approximately half way and needle tract flushed with 1 mL of 1% lidocaine. Needle was then removed. There were no apparent sensory or motor deficits in the lower extremity following the procedure. A sterile bandage was placed over the injection site. The heart rate, pulse, oximetry and blood pressure were continuously monitored after the procedure. There were no apparent complications. The patient tolerated the procedure well and was carefully escorted to the recovery room in stable condition. There were no apparent complications. After meeting discharge criteria, the patient was then discharged home. <ELECTRONICALLY SIGNED> By: Leighton Nieto DO 12/04/19 0914 [id number] Leighton Nieto DO /chun
== END | disposition home or self-care (01) ==
LOC: PAIN 06:47
PROVIDERS: ATTEND Anesthesiology Pain Medicine
DX: M51.16 Intervertebral disc disorders with radiculopathy, lumbar region (principal); M48.061 Spinal stenosis, lumbar region without neurogenic claudication; M47.27 Other spondylosis with radiculopathy, lumbosacral region; G89.29 Other chronic pain; I10 Essential (primary) hypertension; M19.90 Unspecified osteoarthritis, unspecified site; Z98.890 Other specified postprocedural states; Z79.899 Other long term (current) drug therapy; Z87.891 Personal history of nicotine dependence; Z88.0 Allergy status to penicillin; Z88.2 Allergy status to sulfonamides; Z91.041 Radiographic dye allergy status

== ENCOUNTER → 2020-02-26 | Outpatient (CLI) | payer OTHER ==
[~2020-02-26] VITALS: Ht 170.2 cm; Wt 105.8 kg
[~2020-02-26] MED LIST changes: -ISOSORBIDE MON120 MG PO; +ISOSORBIDE MONO30 M1 PO
[2020-02-26 12:40] VITALS: BP 109/72
--- NOTE | 2020-02-26 12:58 | NUR ---
Pain Clinic Assessment: 1. History of Osteoarthritis: SHOULDER-RT KNEES History of Rheumatoid Arthritis: YES 2. Height: 5 ft. 7 in. 170.2 cm. Weight: 233.2 lb. oz. 105.779 kg. Patient's BMI: 36.5 3. Vital Signs: BP: 109/72 Pulse: 103 Resp: 20 Temp: 02 Sat: 95 ECG Mon: 4. Pain Intensity: 4-8 5. Fall Risk: Dizziness: N Needs help standing or walking: Y Fallen in the last 3 months: N Fall risk comments: FELL JUN 6. DID NOT SEEK MEDICAL TREATMENT. 6. Patient on Blood Thinner: None 7. History of Hypertension: Y 8. Opioid Therapy greater than 6 weeks: N Opiate Contract Signed: 9. Risk Assessment Tool Provided: MODERATE RISK 7 10. Functional Assessment Tool: 11. Recreational Drug Use: Current within past 3 mos Drug Type: Tobacco Use: Former Smoker Tobacco Type: Amount or Packs/day: How Many Years: Alcohol Use: Yes Frequency: Quant:
--- NOTE | 2020-02-27 11:51 | HPC ---
[facility] [place] [address] PAIN MANAGEMENT CONSULTATION Name: DANIELLE BROUSSARD Room #: REG IDALMIS JoselynDanialJoselyn#: [id number] Admission: 02/26/20 Attend Phys: Leighton Nieto DO Discharge: Date of : 50 Report #: [id number] THIS REPORT FOR: cc: Nando Llamas MD, Steven E. MD Johnson, James E. DO ~ DATE OF SERVICE: 02/26/2020 CHIEF COMPLAINT: Low back pain, bilateral lower extremity pain with paresthesias, left greater than right. HISTORY OF PRESENT ILLNESS: As you know, the patient is a very pleasant 69-year-old female, who has returned today in followup visit with recurrent low back pain, left lower extremity greater than right lower extremity pain, reporting symptoms at about 4-8/10. The patient states her pain is exacerbated with walking and standing for any length of time. She states she sustained a fall in June 2019, but did not seek medical treatment. She has not had a fall since that time. She returns today in followup visit to undergo lumbar epidural injection under fluoroscopic guidance. She reports the previous epidural injection provided at our visit of 11/21/2019 gave improvement in symptoms of 70%, lasting until recently where she had a slow and progressive return of symptoms without inciting injury or trauma. She returns today in followup visit requesting to undergo next in the series of epidural injections assuming hopes of improving analgesic benefit. ALLERGIES: PENICILLIN, SULFA. CURRENT MEDICATIONS: Cyclobenzaprine 10 mg t.i.d. p.r.n. muscle spasms, Lyrica 150 mg t.i.d., nitroglycerin 0.4 mg p.r.n., cetirizine 10 mg once a day, omega-3 fish oil 1 tab per day, ascorbic acid 500 mg once a day, acetaminophen, extra strength 650 mg 2 tabs in the morning, aspirin 81 mg per day, atorvastatin 80 mg per day, Amitiza 8 mcg per day, pantoprazole 40 mg per day, metoprolol 25 mg once a day, hydroxychloroquine 200 mg dose 2 tabs p.o. q.a.m., hydrocodone/acetaminophen 5/325 one tab p.o. q. 8 hours p.r.n. for pain, leflunomide 10 mg once a day, isosorbide dinitrate 30 mg once a day. SOCIAL HISTORY: The patient denies tobacco, alcohol, IV or illicit drug use. She is unaccompanied at today's visit. IMAGING: No new imaging available. PQRS: The patient has known arthritic changes of the cervical spine, lumbar spine, bilateral hips. She reports she has a history of rheumatoid arthritis. She is taking medication to treat the disease process. She is a fall risk, but has not had a fall in last 3 months. She did have a fall in June, but did [address] [address] PAIN MANAGEMENT CONSULTATION Name: BROUSSARDDANIELLE E Room #: REG CL Huma#: [id number] Admission: 02/26/20 Attend Phys: Leighton Nieto DO Discharge: Date of : 50 Report #: [id number] not seek medical treatment. She is utilizing a roller walker for ambulation. She is not on blood thinners, but is treated for hypertension. She is on chronic opioids, but does show moderate to high risk of opioid addiction. She is placing pain impact at 26-70, moderate interference of daily activities secondary to pain. PHYSICAL EXAMINATION: VITAL SIGNS: Blood pressure 109/72, pulse is 103, respiratory rate 20 and unlabored. The patient is 95% on room air. Height 5 feet 7 inches tall, weight 233.2 pounds, BMI calculated 36.5. GENERAL: Well-developed, well-nourished, well-hydrated exogenously obese 69-year-old female appearing stated age, pain is rated anywhere from 4-8/10. HEENT: Normocephalic, atraumatic. Pupils equal, round and reactive. Speech fluent. The patient deemed a fair historian. EXTREMITIES: Show no clubbing, no cyanosis, no edema. MUSCULOSKELETAL: Lower extremity. Muscle bulk and tone appears symmetrical when comparing left lower extremity to right. Seated straight leg raising negative. Supine straight leg raising positive on the left. Marisol's test negative. Modified Gaenslen's positive for axial low back pain. Strength appears symmetrical 5/5. She is intact to light touch from L1 through S2 dermatomes. Gait is antalgic. She is favoring left lower extremity to right knee utilizing a roller walker for balance. ASSESSMENT: 1. Symptomatic lumbar radiculopathy. 2. Displacement of lumbar intervertebral disk with radiculopathy. 3. Lumbosacral spondylosis with radiculopathy. 4. Neural foraminal stenosis of the lumbar spine. 5. Chronic intractable pain. PLAN: 1. The patient returns today in followup visit per the request the referring physician to undergo next in the series of lumbar epidural injections under fluoroscopic guidance. The patient reported benefit with previous epidural injection of greater than 70%, lasting until recently where she had a slow and progressive return of symptoms without inciting injury or trauma. The patient reports no changes in medical history, which would preclude us from providing an injection. She has been advised risks and benefits of the procedure, states understood and wished to proceed. 2. No medication changes made at today's visit. The patient will continue current medical therapy as prior prescribed. 3. We will see the patient back in followup visit on an as needed basis for possible next in the series of lumbar epidural injections. We are hopeful the patient will see good and prolonged benefit with today's procedure. DESCRIPTION OF PROCEDURE: L5-S1 left paramedian epidural steroid injection [address] [address] PAIN MANAGEMENT CONSULTATION Name: DANIELLE BROUSSARD Room #: REG [facility] [id number] Admission: 02/26/20 Attend Phys: Leighton Nieto DO Discharge: Date of : 50 Report #: [id number] under fluoroscopic guidance. After obtaining written consent, the patient was taken back to fluoroscopy suite, placed in prone position with pillow under abdomen to decrease lumbar lordosis. Skin overlying lumbosacral area prepped and draped in aseptic fashion. The L5-S1 vertebral interspace was identified by AP fluoroscopy. Skin and subcutaneous tissue overlying target site of injection anesthetized with 3 mL of 1% lidocaine. A 20-gauge 3-1/2 inch Tuohy needle advanced under fluoroscopic guidance towards the epidural space using a left paramedian approach. Epidural space identified using loss of resistance to air technique. After negative aspiration for heme or cerebrospinal fluid, position of needle was confirmed with AP and lateral fluoroscopy. Due to a contrast allergy, no contrast agent was used in today's procedure. After negative aspiration for heme or cerebrospinal fluid, 5 mL of a solution containing 2 mL 40 mg per mL, 80 mg total triamcinolone along with 3 mL of lidocaine 1% injected slowly. Needle was retracted approximately half way, flushed with 1 mL of 1% lidocaine and removed. Sterile bandage placed over injection site. There were no new motor deficits present in lower extremity following procedure. The patient tolerated the procedure well, carefully escorted to recovery room in stable condition. No apparent complications. After meeting discharge criteria, the patient discharged home. <ELECTRONICALLY SIGNED> By: Leighton Nieto DO 02/27/20 1151 [id number] Leighton Nieto DO /nt
== END | disposition home or self-care (01) ==
LOC: PAIN 06:43
PROVIDERS: ATTEND Anesthesiology Pain Medicine
DX: M51.16 Intervertebral disc disorders with radiculopathy, lumbar region (principal); M47.27 Other spondylosis with radiculopathy, lumbosacral region; M48.061 Spinal stenosis, lumbar region without neurogenic claudication; G89.29 Other chronic pain; I10 Essential (primary) hypertension; M19.90 Unspecified osteoarthritis, unspecified site; Z98.890 Other specified postprocedural states; Z79.899 Other long term (current) drug therapy; Z79.891 Long term (current) use of opiate analgesic; Z88.0 Allergy status to penicillin; Z88.2 Allergy status to sulfonamides

== ENCOUNTER → 2020-05-28 | Outpatient (CLI) | payer OTHER ==
[~2020-05-28] VITALS: Ht 170.2 cm; Wt 106.9 kg
--- NOTE | ~2020-05-28 | HPC ---
[facility] [place] [address] PAIN MANAGEMENT CONSULTATION Name: DANIELLE BROUSSARD Room #: REG IDALMIS Gonsales.#: [id number] Admission: 05/28/20 Attend Phys: Leighton Nieto DO Discharge: Date of : 50 Report #: [id number] THIS REPORT FOR: cc: Nando Llamas MD, Steven E. MD Johnson, James E. DO ~ DATE OF SERVICE: 05/28/2020 REFERRING PHYSICIAN: Darvin Jeffries MD CHIEF COMPLAINT: Low back pain, bilateral lower extremity pain with paresthesias. HISTORY OF PRESENT ILLNESS: As you know, the patient is a very pleasant 69-year-old female returning today in followup visit with recurrent lumbar radiculopathy. The pain that she is experiencing today is greater on the left than the right, which is fairly typical for her. She is placing her current pain score 6/10. She states that the previous epidural injection gave excellent benefit for pain, giving about 75% improvement and lasting for 2-1/2 months. The patient has also undergone a right intra-articular hip injection, which has improved her hip pain as well. She returns today in followup visit to undergo next in the series of lumbar epidural injections under fluoroscopic guidance to address recurrent lumbar radicular symptoms for which she places pain score 6/10. The patient denies new injury, trauma or any changes in medical history since our last visit that may have led to symptom reoccurrence. ALLERGIES: PENICILLIN, SULFA, CONTRAST AGENT. CURRENT MEDICATIONS: Cyclobenzaprine, Lyrica, nitroglycerin p.r.n., multivitamin, cetirizine, omega-3 fish oil, ascorbic acid, acetaminophen, aspirin, atorvastatin, Amitiza, pantoprazole, metoprolol, hydroxychloroquine, hydrocodone, rufinamide, isosorbide dinitrate. SOCIAL HISTORY: The patient denies tobacco, alcohol, IV or illicit drug use. She is unaccompanied at today's visit. IMAGING: No new imaging available. PQRS: The patient has known arthritic changes of the cervical spine, lumbar spine, bilateral hips and bilateral knees, as well as bilateral shoulders. She does have a history of rheumatoid arthritis and being treated for such. She is placing her pain intensity at 6/10. She is not typically a fall risk, but has had a fall in the last 3 months. Apparently, she fell while crossing a parking lot while going to the doctor's office in March. This was an incident where she tripped over an object in the parking area. She does not use any type of ambulatory device. She is not on blood thinners, [place] [address] PAIN MANAGEMENT CONSULTATION Name: DANIELLE BROUSSARD Room #: REG CLKatelynn Finn#: [id number] Admission: 05/28/20 Attend Phys: Leighton Nieto DO Discharge: Date of : 50 Report #: [id number] hypertension. She is on chronic opioids and has a [id number] risk of opioid addiction based on our assessment tool. Pain impact, 26-70, moderate interference of daily activities secondary to pain. PHYSICAL EXAMINATION: VITAL SIGNS: Blood pressure 134/67, pulse 102, respiratory rate 18 and unlabored. The patient is 97% on room air. Height 5 feet 7 inches tall, weight 235.6 pounds, BMI calculated at 36.9. GENERAL: Well-developed, well-nourished, well-hydrated, exogenously obese 69-year-old female appearing stated age. Pain is rated today at 6/10. HEENT: Normocephalic, atraumatic. Pupils equal, round and reactive. The patient is wearing a mask in compliance with COVID-19 regulations. EXTREMITIES: Show no clubbing, no cyanosis, and no edema. MUSCULOSKELETAL: Seated straight leg raising negative. Supine straight leg raising positive on the left. Marisol's test is negative today. Modified Gaenslen's positive for axial low back pain. Ankle clonus negative. Babinski is negative, intact to light touch from L1 through S2 dermatomes. Gait mildly antalgic favoring left lower extremity. ASSESSMENT: 1. Symptomatic lumbar radiculopathy. 2. Displacement of lumbar intervertebral disk with radiculopathy. 3. Lumbosacral spondylosis with radiculopathy. 4. Neural foraminal stenosis of the lumbar spine. 5. Chronic intractable pain. PLAN: 1. The patient returns today in followup visit requesting to undergo lumbar epidural injection under fluoroscopic guidance. The patient has done very well with previous epidural injections, most recent giving 75% improvement in overall pain lasting him for 2-1/2 months. She returns today in followup visit to undergo next in the series to build on success of previous intervention. She has been advised risks and benefits of the procedure; states she understood and wished to proceed. 2. No medication changes made at today's visit. The patient will continue current medical therapy as prior prescribed. 3. We planned to see the patient back in followup visit on an as-needed basis for possible next in the series of epidural injections. We are hopeful that the patient will continue to see excellent benefit with the epidural injections. PROCEDURE NOTE DESCRIPTION OF PROCEDURE: L5-S1 left paramedian epidural steroid injection under fluoroscopic guidance. [facility] [address] [place] [address] PAIN MANAGEMENT CONSULTATION Name: DANIELLE BROUSSARD Room #: REG IDALMIS Finn#: [id number] Admission: 05/28/20 Attend Phys: Leighton Nieto DO Discharge: Date of : 50 Report #: [id number] After obtaining written consent, the patient was taken back to fluoroscopy suite, placed in prone position with pillow under her abdomen to decrease lumbar lordosis. Skin overlying the lumbosacral area, then prepped and draped in aseptic fashion. Lumbar intervertebral spaces were identified by AP fluoroscopy. Skin and subcutaneous tissue overlying target site injection and anesthetized with 3 mL of 1% lidocaine. A 20-gauge 3-1/2 inch Tuohy needle was advanced under fluoroscopic guidance towards the epidural space using a left paramedian approach. Epidural space identified using loss of resistance to air technique. Due to a reported contrast allergy, no contrast agent was used in today's procedure. Needle position was confirmed using both AP and lateral fluoroscopy. After negative aspiration for heme or cerebrospinal fluid, 5 mL of a solution containing 2 mL of 40 mg per mL, 80 mg total triamcinolone and 3 mL lidocaine 1% injected slowly. Needle then retracted approximately half way, flushed with 1 mL of 1% lidocaine and then removed. Sterile bandage placed over injection site. No new motor deficits present in the lower extremities following procedure. The patient tolerated the procedure well, carefully escorted to recovery room in stable condition. No apparent complications. After meeting discharge criteria, the patient discharged home. By: [id number] Leighton Nieto DO /nt
[2020-05-28 13:38] VITALS: BP 134/67
--- NOTE | 2020-05-28 13:50 | NUR ---
Pain Clinic Assessment: 1. History of Osteoarthritis: SHOULDER-RT KNEES History of Rheumatoid Arthritis: YES 2. Height: 5 ft. 7 in. 170.2 cm. Weight: 235.6 lb. oz. 106.868 kg. Patient's BMI: 36.9 3. Vital Signs: BP: 134/67 Pulse: 102 Resp: 18 Temp: 02 Sat: 97 ECG Mon: 4. Pain Intensity: 6 5. Fall Risk: Dizziness: N Needs help standing or walking: N Fallen in the last 3 months: Y Fall risk comments: PT FELL IN OCT WHEN GETTING A RIGHT HIP INJECTION. FELL IN THE PARKING LOT BEFFORE THE SHOT; DENIES INJURY 6. Patient on Blood Thinner: None 7. History of Hypertension: Y 8. Opioid Therapy greater than 6 weeks: N Opiate Contract Signed: 9. Risk Assessment Tool Provided: MODERATE RISK 7 10. Functional Assessment Tool: 11. Recreational Drug Use: Current within past 3 mos Drug Type: THC PILLS Tobacco Use: Former Smoker Tobacco Type: Amount or Packs/day: How Many Years: Alcohol Use: Yes Frequency: Monthly Quant: 1
== END | disposition home or self-care (01) ==
LOC: PAIN 07:00
PROVIDERS: ATTEND Anesthesiology Pain Medicine
DX: M51.16 Intervertebral disc disorders with radiculopathy, lumbar region (principal); M47.27 Other spondylosis with radiculopathy, lumbosacral region; M48.061 Spinal stenosis, lumbar region without neurogenic claudication; G89.29 Other chronic pain; I10 Essential (primary) hypertension; M19.90 Unspecified osteoarthritis, unspecified site; Z98.890 Other specified postprocedural states; Z79.899 Other long term (current) drug therapy; Z79.891 Long term (current) use of opiate analgesic; Z88.0 Allergy status to penicillin; Z88.2 Allergy status to sulfonamides; Z91.041 Radiographic dye allergy status

== ENCOUNTER → 2020-09-24 | Outpatient (CLI) | payer OTHER ==
[~2020-09-24] VITALS: Ht 170.2 cm; Wt 107.3 kg
[~2020-09-24] MED LIST changes: +FOLIC ACID1 MG PO; +METHOTREXATE 22.5 M1 PO
[2020-09-24 10:45] VITALS: BP 133/73
--- NOTE | 2020-09-24 10:56 | NUR ---
Pain Clinic Assessment: 1. History of Osteoarthritis: SHOULDER-RT KNEES History of Rheumatoid Arthritis: YES 2. Height: 5 ft. 7 in. 170.2 cm. Weight: 236.6 lb. oz. 107.321 kg. Patient's BMI: 37.0 3. Vital Signs: BP: 133/73 Pulse: 80 Resp: 16 Temp: 02 Sat: 96 ECG Mon: 4. Pain Intensity: 7 5. Fall Risk: Dizziness: N Needs help standing or walking: Y Fallen in the last 3 months: N Fall risk comments: PT FELL IN OCT WHEN GETTING A RIGHT HIP INJECTION. FELL IN THE PARKING LOT BEFFORE THE SHOT; DENIES INJURY 6. Patient on Blood Thinner: None 7. History of Hypertension: Y 8. Opioid Therapy greater than 6 weeks: N Opiate Contract Signed: 9. Risk Assessment Tool Provided: MODERATE RISK 7 10. Functional Assessment Tool: 11. Recreational Drug Use: Current within past 3 mos Drug Type: Tobacco Use: Former Smoker Tobacco Type: Amount or Packs/day: How Many Years: Alcohol Use: No Frequency: Quant:
--- NOTE | 2020-09-30 12:24 | HPC ---
[place] [address] PAIN MANAGEMENT CONSULTATION Name: DANIELLE BROUSSARD Room #: REG IDALMIS Dari#: [id number] Admission: 09/24/20 Attend Phys: Leighton Nieto DO Discharge: Date of : 50 Report #: [id number] THIS REPORT FOR: cc: Nando Llamas MD, Steven E. MD Johnson, James E. DO ~ DATE OF SERVICE: 09/24/2020 REFERRING PHYSICIAN: Darvin Jeffries MD CHIEF COMPLAINT: Low back pain, bilateral lower extremity pain with paresthesias. HISTORY OF PRESENT ILLNESS: As you know, the patient is a very pleasant 70-year-old female who returns today in followup visit to undergo next in the series of lumbar epidural injections. She is reporting a pain score today at 7/10. She has been noted with the previous epidural injection improvement in symptoms of 70%, lasting for nearly 2 months. She has had a slow and progressive return of symptoms. She returns today in followup visit requesting to undergo next in the series of epidural injections to build on success of previous intervention. ALLERGIES: PENICILLIN, SULFA, CONTRAST AGENT. CURRENT MEDICATIONS: See chart. SOCIAL HISTORY: The patient denies tobacco, alcohol, IV or illicit drug use. She is unaccompanied at today's visit. IMAGING: No new imaging available. PQRS: The patient has known arthritic changes of the cervical spine, lumbar spine, bilateral hips, bilateral knees and bilateral shoulders. No reported rheumatoid arthritis. She is placing pain intensity today at 7/10. She is a fall risk as she just had a fall in the parking lot about a week and a half ago. There has been no other falls. She states she tripped over an object in the parking lot. She does not use any type of ambulatory device. She is not on blood thinners, but is treated for hypertension. She is not on opioids and has a moderate risk of opioid addiction based on our assessment tool. Pain impact is 26/70, moderate interference of daily activities secondary to pain. PHYSICAL EXAMINATION: VITAL SIGNS: Blood pressure 133/73, pulse 80, respiratory rate 16 and unlabored. The patient is 96% on room air. Height 5 feet 7 inches tall, weight 236.6 pounds, BMI calculated 37.0. GENERAL: Well-developed, well-nourished, well-[place] [address] PAIN MANAGEMENT CONSULTATION Name: DANIELLE BROUSSARD Room #: REG CLI [facility]#: [id number] Admission: 09/24/20 Attend Phys: Leighton Nieto DO Discharge: Date of : 50 Report #: [id number] 70-year-old female appearing her stated age. She is placing current pain score at 7/10. HEENT: Normocephalic, atraumatic. Pupils are round and responsive. The patient is wearing a mask in compliance with COVID-19 regulations. EXTREMITIES: Show no clubbing, no cyanosis. No appreciable edema. MUSCULOSKELETAL: Palpatory tenderness is noted over the paraspinal musculature of lower lumbar spine. No spinous process tenderness. Lumbar provocation testing is met with increasing axial back pain. Modified Gaenslen's positive for axial low back pain, no radiation of symptoms. She is intact to light touch from L1 through S2 dermatomes. Seated straight leg raising negative. Supine straight leg raising remains positive, left. ASSESSMENT: 1. Symptomatic lumbar radiculopathy. 2. Displacement of lumbar intervertebral disk with radiculopathy. 3. Lumbosacral spondylosis with radiculopathy. 4. Neural foraminal stenosis of lumbar spine. 5. Chronic intractable pain. PLAN: 1. The patient returns today in followup visit to undergo lumbar epidural injection under fluoroscopic guidance. She is placing her current pain score at around 7/10. She reports a 70% improvement in overall symptoms with previous lumbar epidural injection, lasting for nearly 2 months with a slow and progressive return of symptoms. She returns today requesting next in the series. She has been advised risks and benefits of the procedure, states understood and wished to proceed. 2. No medication changes made at today's visit. The patient will continue current medical therapy as prior prescribed. 3. We will see the patient back in followup visit on an as needed basis for the next in the series of lumbar epidural injections. We are hopeful the patient will see once again good and prolonged benefit with today's procedure. PROCEDURE NOTE DESCRIPTION OF PROCEDURE: L5-S1 left parasagittal epidural steroid injection under fluoroscopic guidance. After obtaining written consent, the patient was taken back to fluoroscopy suite, placed in prone position with pillow under abdomen to decrease lumbar lordosis. Skin overlying the lumbosacral area then prepped and draped in aseptic fashion. Lumbar intervertebral spaces were identified by AP fluoroscopy. Skin and subcutaneous tissue overlying target site injection anesthetized with 3 mL of 1% lidocaine. A 20-gauge 3-1/2 inch Tuohy needle advanced under fluoroscopic guidance towards [address] [address] PAIN MANAGEMENT CONSULTATION Name: DANIELLE BROUSSARD Room #: REG IDALMIS Finn#: [id number] Admission: 09/24/20 Attend Phys: Leighton Nieto DO Discharge: Date of : 50 Report #: [id number] the epidural space using left parasagittal approach. Epidural space identified using loss of resistance to air technique. Due to a contrast allergy, no contrast agent was used in today's procedure. Needle position was confirmed using both AP and lateral fluoroscopy. After negative aspiration for heme or cerebrospinal fluid, 5 mL of a solution containing 2 mL 40 mg per mL, 80 mg total triamcinolone along with 3 mL of lidocaine 1% injected slowly. Needle then retracted approximately half way, flushed with 1 mL of 1% lidocaine, then removed. Sterile bandage placed over injection site. No new motor deficits present in the lower extremities following procedure. The patient tolerated the procedure well, carefully escorted to recovery room in stable condition. No apparent complications. After meeting discharge criteria, the patient discharged home. <ELECTRONICALLY SIGNED> By: Leighton Nieto DO 09/30/20 1224 [id number] Leighton Nieto DO /nt
== END | disposition home or self-care (01) ==
LOC: PAIN 09:07
PROVIDERS: ATTEND Anesthesiology Pain Medicine
DX: M51.16 Intervertebral disc disorders with radiculopathy, lumbar region (principal); M47.27 Other spondylosis with radiculopathy, lumbosacral region; M48.061 Spinal stenosis, lumbar region without neurogenic claudication; G89.29 Other chronic pain; I10 Essential (primary) hypertension; M19.90 Unspecified osteoarthritis, unspecified site; Z98.890 Other specified postprocedural states; Z79.899 Other long term (current) drug therapy; Z87.891 Personal history of nicotine dependence; Z88.0 Allergy status to penicillin; Z88.2 Allergy status to sulfonamides; Z91.040 Latex allergy status

== ENCOUNTER → 2020-12-31 | Outpatient (CLI) | payer OTHER ==
[~2020-12-31] VITALS: Ht 170.2 cm; Wt 104.8 kg
[~2020-12-31] MED LIST changes: +FAMOTIDINE 40 M40 M1 PO
--- NOTE | ~2020-12-31 | HPC ---
[facility] [place] [address] PAIN MANAGEMENT CONSULTATION Name: DANIELLE BROUSSARD Room #: REG IDALMIS Gonsales.#: [id number] Admission: 12/31/20 Attend Phys: Leighton Nieto DO Discharge: Date of : 50 Report #: [id number] THIS REPORT FOR: cc: Nando Llamas MD, Steven E. MD Johnson, James E. DO ~ cc: Darvin Jeffries MD, Nando Llamas MD DATE OF SERVICE: 12/31/2020 CHIEF COMPLAINT: Low back pain, bilateral lower extremity pain. HISTORY OF PRESENT ILLNESS: As you know, the patient is a pleasant 70-year-old female returning in followup visit requesting to undergo next in the series of lumbar epidural injections under fluoroscopic guidance. She is placing her current pain score 3/10. States the pain is sharp, deep aching with intermittent piercing numbness and tingling. She places pain again at 3/10. She denies new injury or trauma. She reports with the previous epidural injection, approximately 70% improvement in overall pain. She is very pleased with positive response to the injection. Returning today to undergo next in the series to build on success of previous intervention. The patient denies new injury, new trauma or any changes in medication management since our last visit. ALLERGIES: PENICILLIN, SULFA, CONTRAST AGENT. CURRENT MEDICATIONS: See chart. SOCIAL HISTORY: Remain the same. She denies tobacco, alcohol or IV or illicit drug use. Unaccompanied. IMAGING: No new imaging available. PQRS: The patient has known arthritic changes of the cervical spine, lumbar spine, bilateral hips, bilateral knees and bilateral shoulders. No reported rheumatoid arthritis. Pain intensity today 3/10. She is a fall risk, but has not had a fall in last 3 months. She is utilizing a roller walker for ambulation. She is not on blood thinners, but is treated for hypertension. She is not on chronic opioids, but does have a moderate to moderate to severe risk of opioid addiction based on our assessment tool. Pain impact is 26-70, moderate interference of daily activities secondary to pain. PHYSICAL EXAMINATION: VITAL SIGNS: Blood pressure 116/65, pulse 82, respiratory rate 16 and unlabored. The patient 95% on room air. Height 5 feet 7 inches tall, weight 231 pounds, BMI calculated 36.2. GENERAL: Well-developed, well-nourished, well-hydrated 70-year-old female appearing stated age, pain is rated at 3/10. [place] [address] PAIN MANAGEMENT CONSULTATION Name: DANIELLE BROUSSARD [id number] Admission: 12/31/20 Attend Phys: Leighton Nieto DO Discharge: Date of : 50 Report #: [id number] HEENT: Normocephalic, atraumatic. Pupils are round and responsive, wearing a mask in compliance with COVID-19 regulations. EXTREMITIES: Show no clubbing, no cyanosis, no edema. MUSCULOSKELETAL: Lower extremity strength is symmetrical, but deconditioned 5/5 intact to light touch from L1 through S2 dermatomes. Seated straight leg raising negative. Supine straight leg raising is positive on the left. Ankle clonus negative. Babinski is negative. Gait is antalgic favoring left lower extremity. ASSESSMENT: 1. Symptomatic lumbar radiculopathy. 2. Displacement of lumbar intervertebral disk with radiculopathy. 3. Neural foraminal stenosis of lumbar spine. 4. Lumbosacral spondylosis with radiculopathy. 5. Chronic intractable pain. PLAN: 1. The patient returns today in followup visit, reporting about a 70% improvement in overall pain with the epidural injection provided at last visit. Unfortunately, her symptoms have begun to reoccur. No inciting injury or trauma. She returns to undergo next in the series of lumbar epidural injections. She has been advised risks and benefits of the procedure, states understood and wished to proceed. 2. No medication changes made at today's visit. The patient will continue current medical therapy as prior prescribed. 3. We will plan to see the patient back in followup visit on an as needed basis for the next in the series of lumbar epidural injections. We are hopeful the patient will have a good trip on her cruise through the [facility] coming up in the next week. We will see her back in followup visit. PROCEDURE NOTE DESCRIPTION OF PROCEDURE: L5-S1 interlaminar epidural steroid injection under fluoroscopic guidance. After obtaining written consent, the patient was taken back to fluoroscopy suite, placed in prone position with pillow under abdomen to decrease lumbar lordosis. Skin overlying lumbosacral area then prepped and draped in aseptic fashion. Lumbar intervertebral spaces were identified by AP fluoroscopy. Skin and subcutaneous tissue overlying target site injection anesthetized with 3 mL 1% lidocaine. A 20 gauge 3-1/2 inch Tuohy needle advanced under fluoroscopic guidance towards the epidural space using a left parasagittal approach. Epidural space identified using loss of resistance to air technique. Due to a contrast allergy, no contrast agent was used in today's procedure. Needle positioning [address] [address] PAIN MANAGEMENT CONSULTATION Name: DANIELLE BROUSSARD Room #: REG [facility]#: [id number] Admission: 12/31/20 Attend Phys: Leighton Nieto DO Discharge: Date of : 50 Report #: [id number] was confirmed using both AP and lateral fluoroscopy. After negative aspiration for heme or cerebrospinal fluid, 5 mL solution containing 2 mL 40 mg per mL 80 mg total triamcinolone along with 3 mL of lidocaine, 1% injected slowly. Needle retracted group home flushed with 1 mL of 1% lidocaine, then removed. Sterile bandage placed over injection site. No new motor deficits present in the lower extremities following procedure. The patient tolerated the procedure well, carefully escorted to recovery room in stable condition. No apparent complications. After meeting discharge criteria, the patient discharged home. By: [id number] Leighton Nieto DO /nt
[2020-12-31 08:19] VITALS: BP 116/65
--- NOTE | 2020-12-31 08:25 | NUR ---
Pain Clinic Assessment: 1. History of Osteoarthritis: SHOULDER-RT KNEES History of Rheumatoid Arthritis: YES 2. Height: 5 ft. 7 in. 170.2 cm. Weight: 231.0 lb. oz. 104.781 kg. Patient's BMI: 36.2 3. Vital Signs: BP: 116/65 Pulse: 82 Resp: 16 Temp: 02 Sat: 95 ECG Mon: 4. Pain Intensity: 3 5. Fall Risk: Dizziness: N Needs help standing or walking: N Fallen in the last 3 months: N Fall risk comments: PT FELL IN OCT WHEN GETTING A RIGHT HIP INJECTION. FELL IN THE PARKING LOT BEFFORE THE SHOT; DENIES INJURY 6. Patient on Blood Thinner: None 7. History of Hypertension: Y 8. Opioid Therapy greater than 6 weeks: N Opiate Contract Signed: 9. Risk Assessment Tool Provided: MODERATE RISK 7 10. Functional Assessment Tool: 11. Recreational Drug Use: Current within past 3 mos Drug Type: Tobacco Use: Former Smoker Tobacco Type: Amount or Packs/day: How Many Years: Alcohol Use: No Frequency: Quant:
== END | disposition home or self-care (01) ==
LOC: PAIN 07:57
PROVIDERS: ATTEND Anesthesiology Pain Medicine
DX: M51.16 Intervertebral disc disorders with radiculopathy, lumbar region (principal); M47.27 Other spondylosis with radiculopathy, lumbosacral region; M48.061 Spinal stenosis, lumbar region without neurogenic claudication; G89.29 Other chronic pain; I10 Essential (primary) hypertension; M19.90 Unspecified osteoarthritis, unspecified site; Z98.890 Other specified postprocedural states; Z79.899 Other long term (current) drug therapy; Z88.0 Allergy status to penicillin; Z88.2 Allergy status to sulfonamides; Z91.041 Radiographic dye allergy status

== ENCOUNTER → 2021-04-01 | Outpatient (CLI) | payer OTHER ==
[~2021-04-01] VITALS: Ht 170.2 cm; Wt 102.2 kg
[~2021-04-01] MED LIST changes: +BISOPROLOL FUMAR5 MG PO; +OMEPRAZOLE 20 M20 M1 PO; +REPATHA SU140 MG/1 M
[2021-04-01 10:10] VITALS: BP 134/87
--- NOTE | 2021-04-01 10:20 | NUR ---
Pain Clinic Assessment: 1. History of Osteoarthritis: SHOULDER-RT KNEES History of Rheumatoid Arthritis: YES 2. Height: 5 ft. 7 in. 170.2 cm. Weight: 225.2 lb. oz. 102.150 kg. Patient's BMI: 35.3 3. Vital Signs: BP: 134/87 Pulse: 78 Resp: 16 Temp: 02 Sat: 95 ECG Mon: 4. Pain Intensity: 5 5. Fall Risk: Dizziness: Y Needs help standing or walking: N Fallen in the last 3 months: Y Fall risk comments: PT FELL IN OCT WHEN GETTING A RIGHT HIP INJECTION. FELL IN THE PARKING LOT BEFFORE THE SHOT; DENIES INJURY 6. Patient on Blood Thinner: None 7. History of Hypertension: Y 8. Opioid Therapy greater than 6 weeks: N Opiate Contract Signed: 9. Risk Assessment Tool Provided: MODERATE RISK 7 10. Functional Assessment Tool: 11. Recreational Drug Use: Current within past 3 mos Drug Type: Tobacco Use: Former Smoker Tobacco Type: Amount or Packs/day: How Many Years: Alcohol Use: Yes Frequency: Special Occasions Quant: 1
--- NOTE | 2021-04-07 14:46 | HPC ---
[facility] [place] [address] PAIN MANAGEMENT CONSULTATION Name: DANIELLE BROUSSARD Room #: REG IDALMIS Gonsales#: [id number] Admission: 04/01/21 Attend Phys: Leighton Nieto DO Discharge: Date of : 50 Report #: [id number] THIS REPORT FOR: cc: Nando Llamas MD,Leighton Baldwin MD, DO ~ cc: Nando Llamas MD DATE OF SERVICE: 04/01/2021 REFERRING PHYSICIAN: Nando Llamas. CHIEF COMPLAINT: Low back pain, bilateral lower extremity pain. HISTORY OF PRESENT ILLNESS: As you know, the patient is a very pleasant 70-year-old female returning in followup visit, requesting to undergo lumbar epidural injection under fluoroscopic guidance. She reports previous epidural injection allowed for improvement in symptoms of 70%, lasting until just recently. She is now placing pain score at 5/10. She received about two to two and half months of improvement overall. She is very pleased with response to treatment, returning today with mainly low back and left lower extremity symptoms to address residual lumbar radiculopathy. The patient denies injury or trauma that may have led to symptom reoccurrence. There have been no changes in the patient's medication management since her last visit that would preclude her from trialing an epidural injection today. ALLERGIES: PENICILLIN, SULFA, CONTRAST AGENT. CURRENT MEDICATIONS: See chart. SOCIAL HISTORY: The patient reports she is a former smoker. Denies IV or illicit drug use. Denies any chronic alcohol use. She is retired, unaccompanied today. IMAGING: No new imaging available. PQRS: The patient has known arthritic changes of cervical spine, lumbar spine, bilateral hips, bilateral knees, bilateral shoulders and bilateral wrists. She does have a diagnosis of rheumatoid arthritis and has been treated for this. She is not a fall risk typically, but did have a fall within the last 3 months, apparently following over a concrete barrier in a parking lot. She has received treatment for this and that symptom has resolved. She is on no blood thinners, but is treated for hypertension. She is on no opioid medications, but has a moderate to severe risk of opioid addiction based on our assessment tool. Pain impact is 27/70, moderate interference of daily activities secondary to pain. PHYSICAL EXAMINATION: [facility] [address] [place] [address] PAIN MANAGEMENT CONSULTATION Name: DANIELLE BROUSSARD Room #: REG CLKatelynn Huma#: [id number] Admission: 04/01/21 Attend Phys: Leighton Nieto DO Discharge: Date of : 50 Report #: [id number] VITAL SIGNS: Blood pressure 134/87, pulse 78, respiratory rate 16 and unlabored. The patient 95% on room air. Height 5 feet 7 inches tall, weight 225.2 pounds, BMI calculated 35.3. GENERAL: A well-developed, well-nourished, well-hydrated 70-year-old female appearing stated age, pain is rated today 5/10. HEENT: Normocephalic, atraumatic. Pupils equal, round and responsive. She is wearing a mask in compliance with COVID-19 regulations. EXTREMITIES: Show no clubbing, no appreciable cyanosis, no edema. MUSCULOSKELETAL: Seated straight leg raising negative. Supine straight leg raising is positive. Left Marisol's test is negative. Modified Gaenslen's positive for axial back pain. Gait appears antalgic, favoring left lower extremity over right. She is not utilizing any type of ambulatory device. Muscle bulk and tone is equal and symmetrical in lower extremities. ASSESSMENT: 1. Symptomatic lumbar radiculopathy. 2. Displacement of lumbar intervertebral disk with radiculopathy. 3. Neural foraminal stenosis of lumbar spine. 4. Lumbosacral spondylosis with radiculopathy. 5. Chronic intractable pain. PLAN: 1. The patient returns today in followup visit having noted 70-75% improvement in overall pain with the epidural injection provided at last visit, lasting until just recently. She returns today in followup visit, requesting a lumbar epidural injection to build on success of previous intervention and to address the recurrence of symptoms that she places pain at 5/10. The patient has been advised of the risks and the benefits of a lumbar epidural injection. States she understood these risks and wished to proceed. 2. No medication changes made at today's visit. The patient will continue current medical therapy as prior prescribed. 3. We plan to see the patient back in followup visit on an as needed basis for the next in the series of lumbar epidural injections in hopes of improving pain. PROCEDURE NOTE: DESCRIPTION OF PROCEDURE: L5-S1 interlaminar epidural steroid injection under fluoroscopic guidance. After obtaining written consent, the patient was taken back to fluoroscopy suite, placed in prone position with pillow under abdomen to decrease lumbar lordosis. Skin overlying lumbosacral area prepped and draped in aseptic fashion. Lumbar intervertebral spaces were identified by AP fluoroscopy. Skin and subcutaneous tissue overlying target site injection anesthetized with 3 mL 1% lidocaine. [address] [address] PAIN MANAGEMENT CONSULTATION Name: DANIELLE BROUSSARD Room #: REG IDALMIS Finn#: [id number] Admission: 04/01/21 Attend Phys: Leighton Nieto DO Discharge: Date of : 50 Report #: [id number] A 20-gauge 3-1/2 inch Tuohy needle advanced under fluoroscopic guidance towards the epidural space using a parasagittal approach. Epidural space identified using loss of resistance to air technique. Due to a reported contrast allergy, no contrast agent was used. Imaging confirmed needle positioning within the epidural space using both AP and lateral fluoroscopy. After negative aspiration for heme or cerebrospinal fluid, 5 mL solution containing 2 mL 40 mg per mL 80 mg total triamcinolone along with 3 mL of lidocaine 1% injected slowly. Needle retracted jail flushed with 1 mL of 1% lidocaine, then removed. Sterile bandage placed over injection site. No new motor deficits present in the lower extremities following procedure. The patient tolerated the procedure well, carefully escorted to recovery room in stable condition. No apparent complications. After meeting our discharge criteria, the patient discharged home. <ELECTRONICALLY SIGNED> By: Leighton Nieto DO 04/07/21 [id number] Leighton Nieto DO /nt
== END | disposition home or self-care (01) ==
LOC: PAIN 06:48
PROVIDERS: ATTEND Anesthesiology Pain Medicine
DX: M51.16 Intervertebral disc disorders with radiculopathy, lumbar region (principal); M48.061 Spinal stenosis, lumbar region without neurogenic claudication; M47.27 Other spondylosis with radiculopathy, lumbosacral region; G89.29 Other chronic pain; I10 Essential (primary) hypertension; M19.90 Unspecified osteoarthritis, unspecified site; Z98.890 Other specified postprocedural states; Z79.899 Other long term (current) drug therapy; Z88.0 Allergy status to penicillin; Z88.2 Allergy status to sulfonamides

== ENCOUNTER → 2021-07-01 | Outpatient (CLI) | payer OTHER ==
[~2021-07-01] VITALS: Ht 170.2 cm; Wt 102.1 kg
[~2021-07-01] MED LIST changes: +NORCO5 PO
--- NOTE | ~2021-07-01 | HPC ---
[facility] [place] [address] PAIN MANAGEMENT CONSULTATION Name: DANIELLE BROUSSARD Room #: REG IDALMIS Gonsales.#: [id number] Admission: 07/01/21 Attend Phys: Leighton Nieto DO Discharge: Date of : 50 Report #: [id number] THIS REPORT FOR: cc: Nando Llamas MD,Leighton Baldwin MD, DO ~ cc: Darvin Jeffries MD, Nando Llamas MD DATE OF SERVICE: 07/01/2021 REFERRING PHYSICIAN: Darvin Jeffries MD CHIEF COMPLAINT: Low back pain, bilateral lower extremity pain with paresthesias. HISTORY OF PRESENT ILLNESS: As you know, the patient is a very pleasant 70-year-old female reporting longstanding history of lumbar radicular pain. She reports good efficacy with epidural injections. The most recent epidural injection according to the patient gave improvement in symptoms of 70%, lasting for nearly 2 months. Unfortunately, her symptoms have reoccurred. She has cited no injury, no trauma. She returns requesting a lumbar epidural injection under fluoroscopic guidance. She is placing current pain score at 6/10. The patient denies new injury, new trauma that may have led to symptom reoccurrence. She is also requesting that we provide opioid medications. She is taking hydrocodone 1/2 tab to 1 tab up to 3 times a day for pain control. She was started on these medications by her primary care physician, but has been advised by the PCP that they will be no longer willing to provide these medications. She is concerned that without the therapy, she would not be able to function. We would be more than willing to assist the patient in the short term, but have advised the patient that long-term opioid medication is not recommended. She is agreeable to change her care to our services for these medications. ALLERGIES: PENICILLIN, SULFA, CONTRAST AGENT. CURRENT MEDICATIONS: See chart. SOCIAL HISTORY: The patient reports she is a former smoker. Denies IV or illicit drug use. Denies any chronic alcohol use. She is retired, unaccompanied today. IMAGING: No new imaging available. PQRS: The patient has known arthritic changes of the cervical spine, lumbar spine, bilateral hips, bilateral knees, bilateral shoulders and bilateral wrists. She does have a diagnosis of rheumatoid arthritis and has been treating for this disease. She is a fall risk, but reports no fall in last 3 months. She is on no blood thinners except for an aspirin, but shows significant [address] [address] PAIN MANAGEMENT CONSULTATION Name: DANIELLE BROUSSARD Room #: REG [facility] Huma#: [id number] Admission: 07/01/21 Attend Phys: Leighton Nieto DO Discharge: Date of : 50 Report #: [id number] bruising secondary to this medication. She is treated for hypertension. She is on chronic opioids, has a moderate opioid addiction potential to near high risk opioid addiction potential based on our assessment tool. Pain impact is 27/70, moderate interference of daily activities secondary to pain. PHYSICAL EXAMINATION: VITAL SIGNS: Blood pressure 112/67, pulse 90, respiratory rate 20, unlabored. The patient is 100% on room air. Height 5 feet 7 inches tall, weight 225 pounds, BMI calculated at 35.2. GENERAL: Well-developed, well-nourished, well-hydrated exogenously obese 70-year-old female appearing stated age, pain is rated today 6/10. HEENT: Normocephalic, atraumatic. Pupils are round. She is wearing a mask in compliance with COVID-19 regulations and recent hospital policy changes. EXTREMITIES: Show no clubbing, no cyanosis and no edema. MUSCULOSKELETAL: Lower extremity strength is symmetrical. Seated straight leg raising negative. Supine straight leg raising is positive. Fabere's test is negative. Modified Gaenslen's positive for axial low back pain. Gait is antalgic. She is utilizing a roller walker for ambulation and balance. Muscle bulk and tone is symmetrical in lower extremities, though deconditioning is noted. Ankle clonus negative. Babinski is negative. ASSESSMENT: 1. Symptomatic lumbar radiculopathy. 2. Displacement of lumbar intervertebral disk with radiculopathy. 3. Neural foraminal stenosis of lumbar spine. 4. Lumbosacral spondylosis with radiculopathy. 5. Chronic intractable pain. PLAN: 1. The patient returns today in followup visit requesting to undergo a lumbar epidural injection under fluoroscopic guidance. She has noted a 70% improvement in overall pain with the previous epidural injection, very pleased with response to that injection, which does allow her to return to activities of daily living without significant pain interference. She returns today requesting next in the series. She has been advised the risks and benefits of the procedure, states understood and wished to proceed. 2. The patient has been advised by her primary care physician who initiated the hydrocodone therapy on this patient for chronic pain that they will be unwilling to provide further prescriptions of the medication. We have agreed to assist the patient in continuing the medications for the short term, understanding that long-term opioid medication is not recommended in chronic pain patients. We will provide the patient with #60 of the hydrocodone tablets. I provided a prescription for #20 to release today which is the first 7-day prescription. The second prescription will release in 1 week for the remaining total. The patient will take this medication as directed. Prescription sent via e-scribe to local pharmacy. [address] [address] PAIN MANAGEMENT CONSULTATION Name: DANIELLE BROUSSARD Room #: REG IDALMIS Finn#: [id number] Admission: 07/01/21 Attend Phys: Leighton Nieto DO Discharge: Date of : 50 Report #: [id number] 3. We will see the patient back in followup visit on an as needed basis for the next in the series of lumbar epidural injections. I am hopeful the patient will see good and prolonged benefit with the injection provided today. PROCEDURE NOTE DESCRIPTION OF PROCEDURE: L5-S1 interlaminar epidural steroid injection under fluoroscopic guidance. After obtaining written consent, the patient was taken back to fluoroscopy suite, placed in prone position with pillow under abdomen to decrease lumbar lordosis. Skin overlying lumbosacral area prepped and draped in aseptic fashion. The lumbar intervertebral spaces were identified by AP fluoroscopy. Skin and subcutaneous tissue overlying target site injection anesthetized with 3 mL 1% lidocaine. A 20 gauge 3-1/2 inch Tuohy needle advanced under fluoroscopic guidance towards the epidural space using a parasagittal approach. Epidural space identified using loss of resistance to air technique. Due to a contrast allergy, no contrast agent was used in today's procedure. Needle positioning was confirmed using both AP and lateral fluoroscopy. After negative aspiration for heme or cerebrospinal fluid, 5 mL of a solution containing 2 mL 40 mg per mL 80 mg total triamcinolone along with 3 mL of lidocaine, 1% injected slowly. Needle retracted senior living flushed with 1 mL of 1% lidocaine and removed. Sterile bandage placed over injection site. No new motor deficits present in the lower extremity following procedure. The patient tolerated the procedure well, carefully escorted to recovery room in stable condition. No apparent complications. After meeting our discharge criteria, the patient discharged home. By: [id number] Leighton Nieto DO /nt
[2021-07-01 08:45] VITALS: BP 112/67
--- NOTE | 2021-07-01 09:00 | NUR ---
Pain Clinic Assessment: 1. History of Osteoarthritis: SHOULDER-RT KNEES History of Rheumatoid Arthritis: YES 2. Height: 5 ft. 7 in. 170.2 cm. Weight: 225.0 lb. oz. 102.060 kg. Patient's BMI: 35.2 3. Vital Signs: BP: 112/67 Pulse: 90 Resp: 20 Temp: 02 Sat: 100 ECG Mon: 4. Pain Intensity: 6 5. Fall Risk: Dizziness: N Needs help standing or walking: Y Fallen in the last 3 months: Y Fall risk comments: PT FELL IN OCT WHEN GETTING A RIGHT HIP INJECTION. FELL IN THE PARKING LOT BEFFORE THE SHOT; DENIES INJURY 6. Patient on Blood Thinner: None 7. History of Hypertension: Y 8. Opioid Therapy greater than 6 weeks: N Opiate Contract Signed: 9. Risk Assessment Tool Provided: MODERATE RISK 7 10. Functional Assessment Tool: 11. Recreational Drug Use: Past greater than 3 mos Drug Type: Tobacco Use: Former Smoker Tobacco Type: Amount or Packs/day: How Many Years: Alcohol Use: Yes Frequency: Special Occasions Quant: 1
== END | disposition home or self-care (01) ==
LOC: PAIN 06:55
PROVIDERS: ATTEND Anesthesiology Pain Medicine
DX: M51.16 Intervertebral disc disorders with radiculopathy, lumbar region (principal); M47.27 Other spondylosis with radiculopathy, lumbosacral region; M48.061 Spinal stenosis, lumbar region without neurogenic claudication; G89.29 Other chronic pain; I10 Essential (primary) hypertension; M19.90 Unspecified osteoarthritis, unspecified site; M06.9 Rheumatoid arthritis, unspecified; Z98.890 Other specified postprocedural states; Z79.899 Other long term (current) drug therapy; Z87.891 Personal history of nicotine dependence; Z88.0 Allergy status to penicillin; Z88.2 Allergy status to sulfonamides; Z91.041 Radiographic dye allergy status